=== PATIENT | female | born 1970 | race Two or more races ===

== ENCOUNTER 2025-02-15 18:03 | Inpatient (IN) | payer MEDICAID, OTHER ==
[~2025-02-15] VITALS: Ht 157.5 cm; Wt 85.7 kg
--- NOTE | 2025-02-15 19:07 | DVH ---
Exam: CT CT AB PEL WO CON-NO ORAL OR IV History: abd pain n/v/d Comparison Study: None TECHNIQUE: Multidetector CT of the abdomen was performed from lung bases to pubic symphysis. Imaging was performed without IV contrast. Axial, coronal and sagittal multiplanar reformats were obtained fr om the axial data set by the technologist. Radiation Dose Information: CT Dose: CTDI volume is 22.75 mGy. Dose-length product is 1252.25 mGy*cm FINDINGS: Evaluation of solid organs is limited due to lack of intravenous contrast use. Findings: Lung Bases: No acute or significant lung base finding. Normal heart size. No pleural or pericardial effusion. Liver: The liver is normal in size. No focal lesions. Gallbladder and Biliary Tree: Unremarkable Spleen: Unremarkable Pancreas: The pancreas is grossly normal in appearance. Adrenal Glands: Unremarkable Kidneys: Kidneys are grossly normal without calculi or hydronephrosis. Bladder: Grossly unremarkable for degree of distention. Bowel: The stomach is grossly normal in appearance. Small bowel and colon are normal in caliber and d istribution. The appendix is visualized and appears normal. Ascites: Absent Lymphadenopathy: No mesenteric, retroperitoneal or periportal lymphadenopathy. Abdominal Wall and Mesentery: Unremarkable. Vasculature: The visualized abdominal aorta is normal in size and caliber. Evaluation of abdominal a nd pelvic vessels is limited due to lack of intravenous contrast. Pelvic Organs: Unremarkable Musculoskeletal: No aggressive focal bony lesions, acute fractures or dislocation. Soft tissues: Unremarkable IMPRESSION: 1. Right: Mucosal thickening correlate clinically for possible colitis. 2. No abnormally dilated small bowel however small bowel contains fluid from the stomach to the cecum possibility of enteritis is raised. 3. Appendix is visualized and appears normal 4. No free air or free fluid. 5. No nephrolithiasis or hydronephrosis 6. Pancreas appears normal. Radiation optimization: All CT scans at this facility use at least one of these dose optimization amarilis hniques: automated exposure control mA and/or kV adjustment per patient size (includes targeted exam s where dose is matched to clinical indication) or iterative reconstruction.
[2025-02-15 19:12] LABS: Hematocrit 51.4 % (36.0-46.0); Hemoglobin 17.4 g/dL (12.2-16.2); Mean Corpuscular Hemoglobin 27.0 pg (28.0-32.0); Mean Corpuscular Volume 79.7 fL (80.0-100.0); Nucleated Red Blood Cells % 0.3 %
[2025-02-15 19:46] LABS: Alanine Aminotransferase 19 U/L (7-40); Albumin 4.7 g/dL (3.2-4.8); Alkaline Phosphatase 82 U/L (46-116); Anion Gap 17 (5-15); BUN/Creatinine Ratio 7.3 (10.0-20.0); Calcium 9.6 mg/dL (8.7-10.4); Chloride 98 mmol/L (98-107); Lipase 30 U/L (12-53); Potassium 4.2 mmol/L (3.5-5.1)
[2025-02-15 19:47] LABS: Bilirubin, Total 0.8 mg/dL (0.2-1.0)
[2025-02-15 19:50] LABS: Blood Urea Nitrogen 23 mg/dL (9-23); Carbon Dioxide 14 mmol/L (20-31); Glucose 129 mg/dL (74-106); Sodium 129 mmol/L (136-145); Total Protein 8.3 g/dL (5.7-8.2)
--- NOTE | 2025-02-15 20:07 | ED.PDOC ---
GI ASSESSMENT HPI Comments HPI: 54 y/o F, presents to the ED for CC of abdominal pain. Patient states, he has been experiencing epigastric abdominal pain with associated symptoms of nausea, vomiting, and diarrhea x2days. Patient reports, recent consumption of possible spoiled seafood x2days ago; endorses having same symptoms at home. Patie nt comments, having multiple episodes of emesis in the past x2days describes emesis to be yellow in appearance. Patient denies chills, sweats, weakness, or fatigue. No other symptoms or modifying factors present at this time. Initial Vitals BP:156/76 HR:124 RR:24 O2:96% Temp:98.0 Past Medical History: DENIES ANY Past Surgical History: DENIES ANY Social History: Denies ETOH, smoking, and drug use. Medications: DENIES ANY Allergies: JESSICAEna FELICIANO: Here with the for the same complaint epigastric pain status post eating fish and cactus. Has associated nonbilious bloody vomit and yellow diarrhea. Denies any other medical problems. HPI: Poor Historian. REVIEW OF SYSTEMS: CONSTITUTIONAL: Denies acute: fever, diaphoresis, chills, HEAD: Denies acute: headache, photophobia Eyes: Denies acute: Double vision, vision loss, eye pain, eye discharge. EARS: Denies acute: tinnitus, hearing loss, ear discharge, ear pain, THROAT: Denies acute: sore throat, swelling, difficulty swallowing , pain with swallowing, change in voice. NECK: Denies acute: neck pain, neck swelling, stiff neck. HEART: Denies acute : chest pain, palpitations, LUNGS: Denies acute: SOB, wheezing, cough, hemoptysis ABDOMEN: Denies acute: melena , hematemesis, hematochezia SKIN: Denies acute: rash, redness, lesions, itchiness. EXTREMITIES: Denies acute: calf pain, numbness, tingling, weakness, denies pain in extremity. Denies acute: Low back pain. Neuro: Denies acute: focal neurological deficit, motor or sensory focal neurological deficit, tremors, seizure like activity, confusion, dizziness, change in mental status, loss of bowel or bladder function, cauda equina like symptoms. : Denies acute: dysuria, hematuria, flank pain, increase in urinary frequency. PSYCH: Denies acute: hallucination, suicidal ideation, homicidal ideation. FEMALE: Denies acute: abnormal vaginal bleeding, foul odor, unusual discharge. PHYSICAL EXAM: General: -----moderate---acute distress, awake and alert. Head: normocephalic, atraumatic. Neck: supple, trachea is midline, no swelling. Throat: Normal phonation. Eyes:, no erythema, no purulent discharge, no proptosis, no icterus. Heart: regular rate, regular rhythm, no significant murmur appreciated. Lungs: no apparent respiratory distress, No wheezing, no rhonchi, no crackles. No stridors Clear to auscultation bilaterally. Abdomen: Epigastric tender to palpation, non distended, soft, no guarding, no rebound, + bowel sounds. Obese Neuro: Awake, Alert, oriented to name, self, situation, follows commands GCS=15. Speech is normal. Skin: no petechia, no purpura, no cyanosis, non-pale, not jaundice. Lower extremities: --no - Pitting edema no deformity, no focal swelling, no calf TTP. Makes eye contact. moves all four extremities. Face: no apparent facial droop. ED COURSE: DISCLAIMER: This medical document was created using an electronic medical record system with voice recognition software and computerized dictation system. Although this document has been carefully reviewed, there might still be some phonetic and typographical errors. Occasional wrong-word or "sound-alike" substitutions may have occurred due to the inherent limitations of voice recognition software. These areas are purely typographical due to imperfections of the software programs and do not reflect any compromise in the patient's medical care. Please read the chart carefully and recognize, using context, where these substitutions have occurred. Chief Complaint: Nausea/Vomiting Time Seen by MD: 20:00 Reviewed Notes: Nurses Notes, Medications, Allergies Allergies: Coded Allergies: NO KNOWN ALLERGIES (Unverified , 02/15/25) Information Source: Patient Mode of Arrival: Wheelchair Timing: Days Duration: Since onset Prehospital treatment: None Quality: None Vomitus: Watery Stool: Watery, Yellow Severity: Moderate Recent: Possible spoiled food Recent Hx of: None Pain Location: Epigastric Modifying Factors: Nothing Associated sign and symptoms: Nausea, Vomiting, Diarrhea, Abdominal Pain Was a procedure done? Was a procedure done?: No GI differential Dx Differential Diagnosis: Gastritis/PUD, Gastroenteritis, Electrolyte Imbalance, Food Poisoning, Bacterial, Viral, Other (DDX include but not limited to diverticulitis, colitis, gastroenteritis, acute abdomen, SBO, enteritis, constipation, volvulus, appendicitis, Gallbladder disease, choledocolithiasis, ascending cholangitis, pancreatitis, intraAbdominal mass/neoplasm, hepatitis, UTI, pylonephritis, kidney stone, aneurysm, dissection, Inflammatory bowel disease, gastroparesis, ischemic bowel.) X-Ray, Labs, Meds, VS Vital Signs Date Time Temp Pulse Resp B/P (MAP) Pulse Ox O2 Delivery O2 Flow Rate FiO2 02/15/25 18:06 98.2 124 24 110/48 96 98.2 Lab Test 02/15/25 19:01 02/15/25 18:18 Range/Units White Blood Count 8.1 4.4-10.8 10^3/uL Red Blood Count 6.45 H 4.0-5.20 10^6/uL Hemoglobin 17.4 H 12.2-16.2 g/dL Hematocrit 51.4 H 36.0-46.0 % Mean Corpuscular Volume 79.7 L 80.0-100.0 fL Mean Corpuscular Hemoglobin 27.0 L 28.0-32.0 pg Mean Corpuscular Hemoglobin Concent 33.8 32.0-36.0 g/dL Red Cell Distribution Width 14.1 11.8-14.3 % Platelet Count 153 140-450 10^3/uL Mean Platelet Volume 11.3 H 6.9-10.8 fL Neutrophils (%) (Auto) 84.2 H 37.0-80.0 % Lymphocytes (%) (Auto) 12.6 10.0-50.0 % Monocytes (%) (Auto) 3.1 0.0-12.0 % Eosinophils (%) (Auto) 0.0 0.0-7.0 % Basophils (%) (Auto) 0.1 0.0-2.0 % Neutrophils # (Auto) 6.8 1.6-8.6 10 ^3/uL Lymphocytes # (Auto) 1.0 0.4-5.4 10 ^3/uL Monocytes # (Auto) 0.2 0-1.3 10 ^3/uL Eosinophils # (Auto) 0 0-0.8 10 ^3/uL Basophils # (Auto) 0 0-0.2 10 ^3/uL Nucleated Red Blood Cells 0.3 % Sodium Level 129 L 136-145 mmol/L Potassium Level 4.2 3.5-5.1 mmol/L Chloride Level 98 98-107 mmol/L Carbon Dioxide Level 14 L 20-31 mmol/L Anion Gap 17 H 5-15 Blood Urea Nitrogen 23 9-23 mg/dL Creatinine 3.15 H 0.550-1.02 mg/dL Glomerular Filtration Rate Calc 17 >90 mL/min BUN/Creatinine Ratio 7.3 L 10.0-20.0 Serum Glucose 129 H 74-106 mg/dL Lactic Acid Level 2.0 0.4-2.0 mmol/L Calcium Level 9.6 8.7-10.4 mg/dL Magnesium Level 1.7 1.6-2.6 mg/dL Total Bilirubin 0.8 0.2-1.0 mg/dL Aspartate Amino Transferase (AST) 23 13-40 U/L Alanine Aminotransferase (ALT) 19 7-40 U/L Alkaline Phosphatase 82 46-116 U/L Total Protein 8.3 H 5.7-8.2 g/dL Albumin 4.7 3.2-4.8 g/dL Lipase 30 12-53 U/L Beta-Hydroxybutyric Acid 0.593 H < 0.4 mmol/L Urine Color Light-orange Yellow Urine Clarity Ex.turbid Clear Urine pH 5.0 5.0-9.0 Urine Specific [place] 1.023 1.001-1.035 Urine Protein 1+ H Negative Urine Ketones Negative Negative Urine Blood 1+ H Negative /uL Urine Nitrite Negative Negative Urine Bilirubin Negative Negative Urine Urobilinogen Normal Negative mg/dL Urine Leukocyte Esterase 3+ Negative /uL Urine RBC 10 0 - 4 /hpf Urine WBC Clumps Present None Seen /hpf Urine Microscopic WBC 70 H 0-5 /HPF Urine Squamous Epithelial Cells Many <5 /hpf Urine Bacteria Many H None Seen /hpf Urine Mucus Few None Seen Urine Glucose Trace Normal mg/dL Stool for White Cells Few Urine Opiates Screen Pending Urine Fentanyl Screen Pending Urine Barbiturates Screen Pending Urine Phencyclidine Screen Pending Urine Amphetamines Screen Pending Urine Benzodiazepines Screen Pending Urine Cocaine Screen Pending Urine Cannabinoids Screen Pending Current Medications Medications (Trade) Dose Ordered Sig/Angel Route Start Time Stop Time Status Last Admin Sodium Chloride 1,000 ml @ 1,000 mls/hr Q1H ONCE IV 02/15/25 20:15 02/15/25 21:14 DC 02/16/25 02:[address] [address] Ph: [phone] DIAGNOSTIC IMAGING Diagnostic Imaging Report : [id number] Signed PATIENT: CLIVE FELICIANO ACCT: [id number] UNIT: [id number] : 1970 LOC: ER ROOM / BED: / AGE / SEX: 54 / F ADM STATUS: REG ER SERVICE 31 ORDERING PHYSICIAN: JOSELYN MORAN DO PROCEDURE(s): ABPL - CT AB PEL WO CON-NO ORAL OR IV REASON: abd pain n/v/d ORDER NUMBER(s): [id number], ACCESSION NUMBER(s): [id number] Exam: CT CT AB PEL WO CON-NO ORAL OR IV History: abd pain n/v/d Comparison Study: None TECHNIQUE: Multidetector CT of the abdomen was performed from lung bases to pubic symphysis. Imaging was performed without IV contrast. Axial, coronal and sagittal multiplanar reformats were obtained from the axial data set by the technologist. Radiation Dose Information: CT Dose: CTDI volume is 22.75 mGy. Dose-length product is 1252.25 mGy*cm FINDINGS: Evaluation of solid organs is limited due to lack of intravenous contrast use. Findings: Lung Bases: No acute or significant lung base finding. Normal heart size. No pleural or pericardial effusion. Liver: The liver is normal in size. No focal lesions. Gallbladder and Biliary Tree: Unremarkable Spleen: Unremarkable Pancreas: The pancreas is grossly normal in appearance. Adrenal Glands: Unremarkable Kidneys: Kidneys are grossly normal without calculi or hydronephrosis. Bladder: Grossly unremarkable for degree of distention. Bowel: The stomach is grossly normal in appearance. Small bowel and colon are normal in caliber and distribution. The appendix is visualized and appears normal. Ascites: Absent Lymphadenopathy: No mesenteric, retroperitoneal or periportal lymphadenopathy. Abdominal Wall and Mesentery: Unremarkable. Vasculature: The visualized abdominal aorta is normal in size and caliber. Evaluation of abdominal and pelvic vessels is limited due to lack of intravenous contrast. Pelvic Organs: Unremarkable Musculoskeletal: No aggressive focal bony lesions, acute fractures or dislocation. Soft tissues: Unremarkable IMPRESSION: 1. Right: Mucosal thickening correlate clinically for possible colitis. 2. No abnormally dilated small bowel however small bowel contains fluid from the stomach to the cecum possibility of enteritis is raised. 3. Appendix is visualized and appears normal 4. No free air or free fluid. 5. No nephrolithiasis or hydronephrosis 6. Pancreas appears normal. Radiation optimization: All CT scans at this facility use at least one of these dose optimization techniques: automated exposure control mA and/or kV adjustment per patient size (includes targeted exams where dose is matched to clinical indication) or iterative reconstruction. ATED BY: SHEILA CHEATHAM Jr., DO DICTATED DATE/TIME: 02/15/251903 SIGNED BY: SHEILA CHEATHAM Jr., SIGNED DATE/TIME: 02/15/251903 CC: Time of 1ST Reevaluation: 20:30 Reevaluation 1ST: Unchanged Patient Education/Counseling: Diagnosis, Treatment Family Education/Counseling: Diagnosis, Treatment Comments MDM: patient presented with the above HPI.--GI symptoms----workup was initiated. patient was found with the above mentioned diagnosis. the following medications were ordered: please refer to order lists of meds and tests obtained by myself Dr. Moran. Patient ED course and VS have been stabilized. Patient has been reassessed in the ED and remained in a stable condition. Pertinent incidental findings were discussed with the patient and/or family. Patient/family voices understanding and is agreeable with plan. Patient has been observed in the ED adequate length of time to insure improvement/stability. Escalation of care considered: Consideration of escalation to observation or admission Findings and most likely with possible food poisoning. Patient was given fluids, fentanyl, Zofran, Cipro. Flagyl was given by the admitting team. Stool results came in later showing WBC. Patient was ADMITTED to the medicine team for further evaluation and treatment of their presentation. All the reports of any imaging studies that were ordered by myself were reviewed by myself. SEPSIS Sepsis Screen Date sepsis recognized/suspect: Feb 15, 2025 Time Sepsis recognized/suspect: 1805 Recent Procedure: No On Antibiotic Therapy: No Respiratory Rate >20: No Heart Rate >90: Yes Temp<36 C (96.8 F) or >38.3 C: No SBP <90 or MAP <65 mmHG: No New Acute Mental Status Change: No Is the patient on CPAP, BIPAP,: No Physician Orders Trucksmith (02/15/25 ) Ova & Parasite Exam (02/15/25 18:18) Stool Bacterial Culture (02/15/25 18:18) Ct Ab Pel Wo Con-No Oral Or Iv (02/15/25 18:32) Vital Signs Date Time Temp Pulse Resp B/P (MAP) Pulse Ox O2 Delivery O2 Flow Rate FiO2 02/15/25 18:06 98.2 124 24 110/48 96 98.2 Laboratory Tests Test 02/15/25 19:01 Lactic Acid Level 2.0 mmol/L (0.4-2.0) White Blood Count 8.1 10^3/uL (4.4-10.8) Medications Medications Dose Ordered Sig/Angel Route Start Time Stop Time Status Last Admin Dose Admin Sodium Chloride 1,000 ml @ 1,000 mls/hr Q1H ONCE IV 02/15/25 20:15 02/15/25 21:14 DC 02/16/25 02:24 Departure 1 Departure Time of Disposition: 20:09 Impression: Primary Impression: Epigastric pain Additional Impressions: Colitis Acute renal insufficiency Nausea vomiting and diarrhea Hyponatremia UTI (urinary tract infection) Infectious diarrhea Disposition: ADMITTED INPATIENT Admit to: [facility] Condition: Guarded Discharged With: Self Critical Care Note Critical Care Time?: Yes (1 hr-critical care time only) I personally scribed for JOSELYN MORAN DO ([email or web address]) on 02/15/25 at 20:07. Electronically submitted by Reena Hull ([email or web address]). I personally scribed for JOSELYN MORAN DO ([email or web address]) on 02/15/25 at 20:09. Electronically submitted by Reena Hull ([email or web address]). I personally scribed for JOSELYN MORAN DO ([email or web address]) on 02/15/25 at 20:18. Electronically submitted by Reena Hull ([email or web address]). I personally scribed for JOSELYN MORAN DO ([email or web address]) on 02/15/25 at 20:21. Electronically submitted by Reena Hull [email or web address]). JOSELYN MORAN DO Feb 15, 2025 20:07
[2025-02-15 21:16] LABS: Urine Protein, UAD 1+ (Negative); Urine WBC Clumps PRESENT /hpf (None Seen)
[2025-02-15] MEDS ORDERED: ONDANSETRON HCL 4 MG/2 ML VIAL IV PRN (23:15)
--- NOTE | 2025-02-15 23:19 | DVHHPRES ---
History of Present Illness Resident Creating Document: RICARDO EDWARDS RESIDENT History of Present Illness History of Present Illness (HPI): CLIVE Busch is a 54-year-old female with no known past medical history who presented with acute complaints of nausea, vomiting, abdominal pain, and back pain that began one day prior to evaluation. She describes the pain as dull, continuous, nonradiating, and rates it as 10 out of 10 in intensity. The pain worsens with eating and drinking and has no alleviating factors. Associated symptoms include chills, diarrhea, and dizziness. She reports that the vomiting is nonbloody. She denies having a fever. The patient notes that both she and her consumed cactus prior to the onset of symptoms, and both are currently experiencing similar illness. Past Medical History (PMH): Denies any past medical history Past Surgical History (PSH): Denies any past surgeries Family history (FH): No relevant family history EtOH: Denies alcohol use Smoking /Vaping: Denies smoking Recreational Drugs: Denies recreational drug use Residence: Lives with Home Medications: None Allergies: No known allergies PCP: Patient has no PCP Specialist relevant to admission: Nonrelevant Review of Systems Review of Systems CONSTITUTIONAL: Fever, night sweats, weight loss, Lymphadenopathy, ecchymoses, fatigue: Negative, complains of chills DERMATOLOGIC: Rash, New/growing/changing skin lesions: Negative HEENT: Vision change, eye pain, Rhinorrhea, sinus pain, epistaxis, dysphagia, odynophagia, globus sensation, Change in hearing, tinnitus, vertigo, otalgia, Dental problems, oral ulcers or lesions: : Negative ENDOCRINE: Weight change, heat or cold intolerance, tremor, insomnia, neck pain or swelling, Polyuria, polydipsia, polyphagia, Abnormal hair growth, change in nails: Negative CARDIOVASCULAR: Chest pain, palpitations, syncope, Edema, cyanosis, claudication, Orthopnea, paroxysmal nocturnal dyspnea: Negative PULMONARY: Shortness of breath, dyspnea with exertion, Cough, hemoptysis, wheezing, chest pain : Negative GI: Complains of nausea, vomiting, diarrhea and abdominal pain : Dysuria, frequency, urgency, Urinary incontinence, hematuria, foamy urine, nocturia, Change in libido, erectile dysfunction, Change in menses, dysmenorrhea, dyspaerunia, pelvic pain: : Negative MUSCULOSKELETAL: Joint swelling or pain, muscle pain, back pain: : Negative NEUROLOGIC: Headache, scotoma, Change in smell or taste, change in facial muscles, Muscle weakness, paresthesias, anesthesia, Ataxia, change in speech: Negative PSYCHIATRIC: Depression, anxiety, hallucinations, tatyana, suicidal/homicidal thoughts, Binging, purging: Negative Allergies: Coded Allergies: NO KNOWN ALLERGIES (Unverified , 02/15/25) Exam Vital Signs Vital Signs Date Time Temp Pulse Resp B/P (MAP) Pulse Ox O2 Delivery O2 Flow Rate FiO2 02/15/25 18:06 98.2 124 24 110/48 96 98.2 Exam General Appearance: Alert, Oriented X3, Cooperative, No acute distress HEENT: Atraumatic, PERRLA, EOMI, Mucous membrane moist/pink Respiratory: Clear to auscultation, Normal air movement Cardiovascular: Regular rate, Normal S1, Normal S2, No murmurs, no chest wall tenderness Abdominal: Denies in the umbilical region Extremities: No clubbing, No cyanosis, No edema, Normal pulses, No tenderness/swelling Skin: No rashes, No breakdown, No significant lesion Neuro: Normal gait, Normal speech, Strength at 5/5 X4 ext, Normal tone, Sensation intact, Cranial nerves 3-12 NL, Reflexes 2+ Psych/Mental Status: Mental status NL, Mood NL Labs/Xrays Labs Test 02/15/25 19:01 02/15/25 18:18 Range/Units White Blood Count 8.1 4.4-10.8 10^3/uL Red Blood Count 6.45 H 4.0-5.20 10^6/uL Hemoglobin 17.4 H 12.2-16.2 g/dL Hematocrit 51.4 H 36.0-46.0 % Mean Corpuscular Volume 79.7 L 80.0-100.0 fL Mean Corpuscular Hemoglobin 27.0 L 28.0-32.0 pg Mean Corpuscular Hemoglobin Concent 33.8 32.0-36.0 g/dL Red Cell Distribution Width 14.1 11.8-14.3 % Platelet Count 153 140-450 10^3/uL Mean Platelet Volume 11.3 H 6.9-10.8 fL Neutrophils (%) (Auto) 84.2 H 37.0-80.0 % Lymphocytes (%) (Auto) 12.6 10.0-50.0 % Monocytes (%) (Auto) 3.1 0.0-12.0 % Eosinophils (%) (Auto) 0.0 0.0-7.0 % Basophils (%) (Auto) 0.1 0.0-2.0 % Neutrophils # (Auto) 6.8 1.6-8.6 10 ^3/uL Lymphocytes # (Auto) 1.0 0.4-5.4 10 ^3/uL Monocytes # (Auto) 0.2 0-1.3 10 ^3/uL Eosinophils # (Auto) 0 0-0.8 10 ^3/uL Basophils # (Auto) 0 0-0.2 10 ^3/uL Nucleated Red Blood Cells 0.3 % Sodium Level 129 L 136-145 mmol/L Potassium Level 4.2 3.5-5.1 mmol/L Chloride Level 98 98-107 mmol/L Carbon Dioxide Level 14 L 20-31 mmol/L Anion Gap 17 H 5-15 Blood Urea Nitrogen 23 9-23 mg/dL Creatinine 3.15 H 0.550-1.02 mg/dL Glomerular Filtration Rate Calc 17 >90 mL/min BUN/Creatinine Ratio 7.3 L 10.0-20.0 Serum Glucose 129 H 74-106 mg/dL Lactic Acid Level 2.0 0.4-2.0 mmol/L Calcium Level 9.6 8.7-10.4 mg/dL Total Bilirubin 0.8 0.2-1.0 mg/dL Aspartate Amino Transferase (AST) 23 13-40 U/L Alanine Aminotransferase (ALT) 19 7-40 U/L Alkaline Phosphatase 82 46-116 U/L Total Protein 8.3 H 5.7-8.2 g/dL Albumin 4.7 3.2-4.8 g/dL Lipase 30 12-53 U/L Urine Color Light-orange Yellow Urine Clarity Ex.turbid Clear Urine pH 5.0 5.0-9.0 Urine Specific [place] 1.023 1.001-1.035 Urine Protein 1+ H Negative Urine Ketones Negative Negative Urine Blood 1+ H Negative /uL Urine Nitrite Negative Negative Urine Bilirubin Negative Negative Urine Urobilinogen Normal Negative mg/dL Urine Leukocyte Esterase 3+ Negative /uL Urine RBC 10 0 - 4 /hpf Urine WBC Clumps Present None Seen /hpf Urine Microscopic WBC 70 H 0-5 /HPF Urine Squamous Epithelial Cells Many <5 /hpf Urine Bacteria Many H None Seen /hpf Urine Mucus Few None Seen Urine Glucose Trace Normal mg/dL Stool for White Cells Few SEPSIS Sepsis Screen Date sepsis recognized/suspect: Feb 15, 2025 Time Sepsis recognized/suspect: 1805 Recent Procedure: No On Antibiotic Therapy: No Respiratory Rate >20: No Heart Rate >90: Yes Temp<36 C (96.8 F) or >38.3 C: No SBP <90 or MAP <65 mmHG: No New Acute Mental Status Change: No Is the patient on CPAP, BIPAP,: No Physician Orders Research Program Assistant (02/15/25 ) Ova & Parasite Exam (02/15/25 18:18) Stool Bacterial Culture (02/15/25 18:18) Ct Ab Pel Wo Con-No Oral Or Iv (02/15/25 18:32) Complete Blood Count (02/15/25 23:13) Basic Metabolic Panel (02/15/25 23:13) Magnesium (02/15/25 23:13) Beta-Hydroxybutyrate (02/15/25 23:13) Lactic Acid W/ Reflex Order (02/15/25 23:13) Admit (02/15/25 23:13) Levofloxacin Levaquin (02/15/25 23:15) Metronidazole Ivpb Flagyl (02/15/25 23:15) Stool Wbc (02/15/25 23:13) Drug Screen (02/15/25 23:13) Covid19 Antigen Eva (02/15/25 ) Ondansetron Hcl (Zofran) (02/15/25 23:15) Pantoprazole (Protonix) (02/15/25 23:15) Pantoprazole (Protonix) (02/16/25 10:00) Vital Signs Date Time Temp Pulse Resp B/P (MAP) Pulse Ox O2 Delivery O2 Flow Rate FiO2 02/15/25 18:06 98.2 124 24 110/48 96 98.2 Laboratory Tests Test 02/15/25 19:01 Lactic Acid Level 2.0 mmol/L (0.4-2.0) White Blood Count 8.1 10^3/uL (4.4-10.8) Assessment/Plan Assessment/Plan Assessment and plan # Acute gastroenteritis with colitis, likely bacterial # Starvation ketosis to recurrent vomiting # folic acidosis due to starvation ketosis because of recurrent vomiting - Follow lactic acid levels - Follow beta hydroxybutyrate - IV levofloxacin plus Flagyl - Stool culture, WBC - Pain medications # KATHERINE due to VMN recurrent vomiting - IV fluids - Follow creatinine levels nephrology consult Renal ultrasound Urine sodium, creatinine, protein to creatinine ratio strict input output # Complicated UTI - IV levofloxacin plus Flagyl - Urine culture # hyponatremia due to hypovolemia IV fluids PUD prophylaxis: protonix 40mg DVT prophylaxis: brisk movement. Barriers to discharge: Medical diagnosis and management in progress. Patient lives with family. Independent for ADL. PCP: No PCP. Advised to follow COUNTS INCLUDE 234 BEDS AT THE [facility] outpatient after sprigger Relevant To Admission: Nonrelevant Case discussed with Dr. Nelson. Code Status: Full Code. Complex patient care discussion needed. Spend total 33 minutes for bedside assessment, case discussion and management. Plan discussed with: Patient, Spouse My Orders Orders - RICARDO EDWARDS RESIDENT Procedure Category Date Status Time Complete Blood Count LAB 02/15/25 Transmitted 23:13 Basic Metabolic Panel LAB 02/15/25 Verified 23:13 Magnesium LAB 02/15/25 Verified 23:13 Beta-Hydroxybutyrate LAB 02/15/25 Verified 23:13 Lactic Acid W/ Reflex LAB 02/15/25 Verified Order 23:13 Admit ADMIT 02/15/25 Verified 23:13 Levofloxacin Levaquin PHA 02/15/25 Verified 23:15 Metronidazole Ivpb PHA 02/15/25 Verified Flagyl 23:15 Stool Wbc LAB 02/15/25 Verified 23:13 Drug Screen LAB 02/15/25 Verified 23:13 Covid19 Antigen Eva LAB 02/15/25 Verified Ondansetron Hcl PHA 02/15/25 Verified (Zofran) 23:15 Pantoprazole PHA 02/15/25 Verified (Protonix) 23:15 Pantoprazole PHA 02/16/25 Verified (Protonix) 10:00 Date of Service: Feb 15, 2025 Billing Provider: GALINA NELSON MD Common Visit Codes: [id number] INP/OBS CARE (HIGH) Secondary Visit Codes: [id number] CARE PLAN 30 MINUTES RICARDO EDWARDS RESIDENT Feb 15, 2025 23:19
[2025-02-16] VITALS (8 sets, daily range): BP systolic 91–111; BP diastolic 50–96; PULSE 76–92; RESP 17–24; TEMP 98.1–99.6; O2SAT 93–96
[2025-02-16] MEDS: SODIUM CHLORIDE 0.9% 1,000 ML IV ONE ×3 (02:24→11:30)
[2025-02-16] MEDS: PANTOPRAZOLE 40 MG/10 ML VIAL INJ IV ONE (03:30)
[2025-02-16] MEDS: ONDANSETRON HCL 4 MG/2 ML VIAL IV ONE (03:31)
[2025-02-16 03:48] LABS: COVID19 ANTIGEN SOFIA FIA NEGATIVE (NEGATIVE)
[2025-02-16] MEDS: KETOROLAC TROMETH 30 MG/ML 1ML VIAL IV ONE (05:11)
[2025-02-16] MEDS: SODIUM CHLORIDE 0.9% 1,000 ML IV SCH (05:12)
[2025-02-16 05:45] LABS: Hematocrit 47.6 % (36.0-46.0); Hemoglobin 15.7 g/dL (12.2-16.2); Mean Corpuscular Hemoglobin 27.0 pg (28.0-32.0); Mean Corpuscular Volume 81.8 fL (80.0-100.0); Nucleated Red Blood Cells % 0.0 %
[2025-02-16] MEDS: CIPROFLOXACIN 400MG/200ML 200 ML IV ONE (05:45)
[2025-02-16 05:54] LABS: Alanine Aminotransferase 20 U/L (7-40); Albumin 4.1 g/dL (3.2-4.8); Alkaline Phosphatase 74 U/L (46-116); Anion Gap 15 (5-15); BUN/Creatinine Ratio 11.3 (10.0-20.0); Bilirubin, Total 0.4 mg/dL (0.2-1.0); Chloride 101 mmol/L (98-107); Potassium 4.1 mmol/L (3.5-5.1); Total Protein 7.1 g/dL (5.7-8.2)
[2025-02-16 06:07] LABS: Blood Urea Nitrogen 42 mg/dL (9-23); Calcium 8.1 mg/dL (8.7-10.4); Carbon Dioxide 14 mmol/L (20-31); Glucose 120 mg/dL (74-106); Sodium 130 mmol/L (136-145)
[2025-02-16 06:27] LABS: Giant Platelets Few
--- NOTE | 2025-02-16 08:20 | DVH ---
INDICATION: steffi TECHNIQUE: Multiple real-time sonographic images of the kidneys and bladder were obtained. COMPARISON: None FINDINGS: The right kidney measures 10 cm in length, which is normal in size. There is normal echogen icity of the right kidney. No hydronephrosis. The left kidney measures 11 cm in length, which is normal in size. There is normal echogenicity of th e left kidney. No hydronephrosis. No large intraluminal masses are seen in the bladder. IMPRESSION: 1. Normal sonographic appearance of the kidneys. No hydronephrosis.
[2025-02-16] MEDS: PANTOPRAZOLE 40 MG/10 ML VIAL INJ IV SCH (09:19)
[2025-02-16 09:29] LABS: INR 1.08 (0.9-1.15); Partial Thromboplastin Time 31.0 SEC (24.5-34.5); Prothrombin Time 11.4 sec (9.3-11.8)
--- NOTE | 2025-02-16 10:59 | DVHINCON2 ---
Date of service: Feb 16, [address] Gil Reason for Consultation Acute kidney injury History of Present Illness Patient is a 54-year-old female who denies past medical history is admitted for abdominal pain associated with nausea vomiting and diarrhea. On admission patient found to have elevated BUN and creatinine nephrology is consulted for acute kidney injury Past Medical History Patient denies Past Surgical History Patient denies Allergies: Coded Allergies: NO KNOWN ALLERGIES (Unverified , 02/15/25) Home Meds No Active Prescriptions or Reported Meds Current Medications Current Medications Medications (Trade) Dose Ordered Sig/Angel Route PRN Reason Start Time Stop Time Status Last Admin Ondansetron HCl (Zofran) 4 mg Q4HPRN PRN IV NAUSEA / VOMITING 02/15/25 23:15 Pantoprazole Sodium (Protonix) 40 mg DAILY IV 02/16/25 10:00 02/16/25 09:19 Sodium Chloride 1,000 ml @ 100 mls/hr Q10H IV 02/16/25 04:15 02/16/25 14:39 Piperacillin Sod/ Tazobactam Sod 100 ml @ 25 mls/hr Q8HR IV 02/16/25 14:00 02/16/25 14:00 Sodium Bicarbonate 100 ml/Sodium Chloride 1,100 ml @ 120 mls/hr Q9H10M IV 02/16/25 10:15 02/16/25 13:00 Family History: Patient reports no known family medical history. Review of Systems All 12 item review of systems reviewed with the patient nonsignificant except what is mentioned in the history of present illness H&P Exam Vital Signs/I&O Vital Sign Date Time Temp Pulse Resp B/P (MAP) Pulse Ox O2 Delivery O2 Flow Rate FiO2 02/16/25 13:08 98.1 76 17 91/50 (64) 93 98.1 02/16/25 02:27 Room Air Intake and Output 02/15/25 02/16/25 19:00 07:00 Intake Total 1000 ml Balance 1000 ml Intake IV Total 1000 ml Physical Exam Patient lying comfortably in bed Lungs clear to auscultation bilaterally Cardiac exam regular rate and rhythm GI soft, increased bowel sounds normal Extremity no clubbing cyanosis or edema Neuro nonfocal Labs/Diagnostic Data Labs/Diagnostic Data Laboratory Tests Test 02/16/25 15:00 02/16/25 08:54 02/16/25 04:57 02/16/25 02:32 Range/Units Urine Color Light-yellow Yellow Urine Clarity Turbid H Clear Urine pH 5.5 5.0-9.0 Urine Specific [place] 1.011 1.001-1.035 Urine Protein 1+ H Negative Urine Ketones Negative Negative Urine Blood Trace H Negative /uL Urine Nitrite Negative Negative Urine Bilirubin Negative Negative Urine Urobilinogen Normal Negative mg/dL Urine Leukocyte Esterase Negative Negative /uL Urine RBC 1 0 - 4 /hpf Urine Microscopic WBC 10 H 0-5 /HPF Urine Squamous Epithelial Cells Few <5 /hpf Urine Bacteria Few H None Seen /hpf Urine Mucus Few None Seen Urine Creatinine 77.21 30.0-125.0 mg/dL Urine Protein/Creatinine Ratio 0.88 Urine Sodium 25 L 40-220 mmol/L Urine Glucose Normal Normal mg/dL Urine Total Protein 69.4 H 1-14 mg/dL Urine Opiates Screen Neg NEGATIVE Urine Fentanyl Screen Pos NEGATIVE Urine Barbiturates Screen Neg NEGATIVE Urine Phencyclidine Screen Neg NEGATIVE Urine Amphetamines Screen Neg NEGATIVE Urine Benzodiazepines Screen Neg NEGATIVE Urine Cocaine Screen Neg NEGATIVE Urine Cannabinoids Screen Neg NEGATIVE Prothrombin Time 11.4 9.3-11.8 sec Prothrombin Time INR 1.08 0.9-1.15 Activated Partial Thromboplast Time 31.0 24.5-34.5 SEC Vitamin B12 Level 511 211-911 pg/mL Vitamin D 25-Hydroxy 20.0 L 30.0-100 ng/mL White Blood Count 7.5 4.4-10.8 10^3/uL Red Blood Count 5.82 H 4.0-5.20 10^6/uL Hemoglobin 15.7 12.2-16.2 g/dL Hematocrit 47.6 H 36.0-46.0 % Mean Corpuscular Volume 81.8 80.0-100.0 fL Mean Corpuscular Hemoglobin 27.0 L 28.0-32.0 pg Mean Corpuscular Hemoglobin Concent 33.0 32.0-36.0 g/dL Red Cell Distribution Width 14.6 H 11.8-14.3 % Platelet Count 103 L 140-450 10^3/uL Mean Platelet Volume 10.9 H 6.9-10.8 fL Neutrophils (%) (Auto) 83.4 H 37.0-80.0 % Lymphocytes (%) (Auto) 12.7 10.0-50.0 % Monocytes (%) (Auto) 3.7 0.0-12.0 % Eosinophils (%) (Auto) 0.0 0.0-7.0 % Basophils (%) (Auto) 0.2 0.0-2.0 % Neutrophils # (Auto) 6.2 1.6-8.6 10 ^3/uL Lymphocytes # (Auto) 1.0 0.4-5.4 10 ^3/uL Monocytes # (Auto) 0.3 0-1.3 10 ^3/uL Eosinophils # (Auto) 0 0-0.8 10 ^3/uL Basophils # (Auto) 0 0-0.2 10 ^3/uL Nucleated Red Blood Cells 0.0 % Platelet Estimate Decreased Large Platelets Few Giant Platelets Few Sodium Level 130 L 136-145 mmol/L Potassium Level 4.1 3.5-5.1 mmol/L Chloride Level 101 98-107 mmol/L Carbon Dioxide Level 14 L 20-31 mmol/L Anion Gap 15 5-15 Blood Urea Nitrogen 42 #H 9-23 mg/dL Creatinine 3.71 H 0.550-1.02 mg/dL Glomerular Filtration Rate Calc 14 >90 mL/min BUN/Creatinine Ratio 11.3 10.0-20.0 Serum Glucose 120 H 74-106 mg/dL Hemoglobin A1c 5.6 <5.7 % A1C Calcium Level 8.1 L 8.7-10.4 mg/dL Total Bilirubin 0.4 0.2-1.0 mg/dL Aspartate Amino Transferase (AST) 24 13-40 U/L Alanine Aminotransferase (ALT) 20 7-40 U/L Alkaline Phosphatase 74 46-116 U/L Total Protein 7.1 5.7-8.2 g/dL Albumin 4.1 3.2-4.8 g/dL Thyroid Stimulating Hormone (TSH) 0.88 0.55-4.78 uIU/mL SARS-CoV-2 Antigen (Rapid) Negative NEGATIVE Test 02/15/25 19:01 02/15/25 18:18 Range/Units White Blood Count 8.1 4.4-10.8 10^3/uL Red Blood Count 6.45 H 4.0-5.20 10^6/uL Hemoglobin 17.4 H 12.2-16.2 g/dL Hematocrit 51.4 H 36.0-46.0 % Mean Corpuscular Volume 79.7 L 80.0-100.0 fL Mean Corpuscular Hemoglobin 27.0 L 28.0-32.0 pg Mean Corpuscular Hemoglobin Concent 33.8 32.0-36.0 g/dL Red Cell Distribution Width 14.1 11.8-14.3 % Platelet Count 153 140-450 10^3/uL Mean Platelet Volume 11.3 H 6.9-10.8 fL Neutrophils (%) (Auto) 84.2 H 37.0-80.0 % Lymphocytes (%) (Auto) 12.6 10.0-50.0 % Monocytes (%) (Auto) 3.1 0.0-12.0 % Eosinophils (%) (Auto) 0.0 0.0-7.0 % Basophils (%) (Auto) 0.1 0.0-2.0 % Neutrophils # (Auto) 6.8 1.6-8.6 10 ^3/uL Lymphocytes # (Auto) 1.0 0.4-5.4 10 ^3/uL Monocytes # (Auto) 0.2 0-1.3 10 ^3/uL Eosinophils # (Auto) 0 0-0.8 10 ^3/uL Basophils # (Auto) 0 0-0.2 10 ^3/uL Nucleated Red Blood Cells 0.3 % Sodium Level 129 L 136-145 mmol/L Potassium Level 4.2 3.5-5.1 mmol/L Chloride Level 98 98-107 mmol/L Carbon Dioxide Level 14 L 20-31 mmol/L Anion Gap 17 H 5-15 Blood Urea Nitrogen 23 9-23 mg/dL Creatinine 3.15 H 0.550-1.02 mg/dL Glomerular Filtration Rate Calc 17 >90 mL/min BUN/Creatinine Ratio 7.3 L 10.0-20.0 Serum Glucose 129 H 74-106 mg/dL Lactic Acid Level 2.0 0.4-2.0 mmol/L Calcium Level 9.6 8.7-10.4 mg/dL Magnesium Level 1.7 1.6-2.6 mg/dL Total Bilirubin 0.8 0.2-1.0 mg/dL Aspartate Amino Transferase (AST) 23 13-40 U/L Alanine Aminotransferase (ALT) 19 7-40 U/L Alkaline Phosphatase 82 46-116 U/L Total Protein 8.3 H 5.7-8.2 g/dL Albumin 4.7 3.2-4.8 g/dL Lipase 30 12-53 U/L Beta-Hydroxybutyric Acid 0.593 H < 0.4 mmol/L Urine Color Light-orange Yellow Urine Clarity Ex.turbid Clear Urine pH 5.0 5.0-9.0 Urine Specific [place] 1.023 1.001-1.035 Urine Protein 1+ H Negative Urine Ketones Negative Negative Urine Blood 1+ H Negative /uL Urine Nitrite Negative Negative Urine Bilirubin Negative Negative Urine Urobilinogen Normal Negative mg/dL Urine Leukocyte Esterase 3+ Negative /uL Urine RBC 10 0 - 4 /hpf Urine WBC Clumps Present None Seen /hpf Urine Microscopic WBC 70 H 0-5 /HPF Urine Squamous Epithelial Cells Many <5 /hpf Urine Bacteria Many H None Seen /hpf Urine Mucus Few None Seen Urine Glucose Trace Normal mg/dL Stool for White Cells Few Microbiology Date/Time Source Procedure Growth Status 02/15/25 22:00 Stool Clostridium difficile Toxin Assay - Final Complete Assessment Acute kidney injury secondary hemodynamic mediated Abdominal pain Gastroenteritis/colitis Dehydration Metabolic acidosis Hyponatremia due to dehydration Recommendations Closely monitor fluid and electrolytes Avoid nephrotoxic medications Strict I&Os Check urinalysis urine lytes and protein excretion Kidney ultrasound reported within normal limit IV fluids with bicarb KCL replacement GI consult We will continue to follow Patient seen and examined by myself in the ER. I discussed my plan of care with the patient and primary nurse at the bedside I would like to thank Dr. Gil for the consult, will follow up Plan discussed with: Patient MARGUERITE DALTON MD Feb 16, 2025 10:59
[2025-02-16] MEDS: SODIUM BICARB 50mEq/50ml Vial 100 ML in SOD CHL 0.45% 1,000 ML IV SCH (13:00)
[2025-02-16] MEDS: PIPERACILLIN-TAZOB 3.375GM 100 ML IV SCH (14:00)
[2025-02-16 15:46] LABS: Urine Protein, UAD 1+ (Negative)
[2025-02-16 15:59] LABS: Protein, Urine 69.4 mg/dL (1-14)
[2025-02-16 16:01] LABS: Opiate Scree,Urine Neg (NEGATIVE)
[2025-02-16 16:02] LABS: Amphetamine Screen, Urine Neg (NEGATIVE); Barbiturate Scree,Urine Neg (NEGATIVE); Benzodiazephine Screen, Urine Neg (NEGATIVE); Cannabinoid Screen, Urine Neg (NEGATIVE); Cocaine Screen, Urine Neg (NEGATIVE); Phencyclidine Screen, Urine Neg (NEGATIVE)
--- NOTE | 2025-02-16 20:06 | DVHPNRES ---
Progress Note Date Seen: Feb 16, 2025 Resident Creating Document: MOHINDER FOFANA RESIDENT Medical Necessity Reason Pt with a Central, PICC or Fol: No Subjective Review of Systems This is a 54-year-old female with no known past medical history who presented with acute complaints of nausea, vomiting, abdominal pain, and back pain that began 3 days prior admission. Abdominal pain which is located in the epigastric region, colicky, intermittent, nonradiating, and 10/10 intensity. The pain worsens with eating and drinking and has no alleviating factors. Patient also complained of diarrhea for 3 days average more than 20 bowel movement per day. Associated symptoms include chills, malaise, weakness and dizziness. She reports that the vomiting is non bloody. The patient and her consumed cactus prior to the onset of symptoms, and both are currently experiencing similar illness. Past Medical History (PMH): Denies any past medical history Past Surgical History (PSH): Denies any past surgeries Family history (FH): No relevant family history EtOH: Denies alcohol use Smoking /Vaping: Denies smoking Recreational Drugs: Denies recreational drug use Residence: Lives with Home Medications: None Allergies: No known allergies PCP: Not selected Patient seen and evaluated in bedside. Patient complained abdominal pain but feeling better in compared to admission. Decreased bowel movement episode. Encouraged patient to oral intake. Objective vital signs Vital Sign Date Time Temp Pulse Resp B/P (MAP) Pulse Ox O2 Delivery O2 Flow Rate FiO2 02/16/25 17:00 99.1 84 17 107/71 (83) 93 99.1 02/16/25 02:27 Room Air Total Intake and Output 02/15/25 02/15/25 02/16/25 15:00 23:00 07:00 Intake Total 1000 ml Balance 1000 ml medications Current Medications Medications Dose Ordered Sig/Angel Route Start Time Stop Time Status Last Admin Dose Admin Ondansetron HCl 4 mg Q4HPRN PRN IV 02/15/25 23:15 Pantoprazole Sodium 40 mg DAILY IV 02/16/25 10:00 02/16/25 09:19 40 MG Sodium Chloride 1,000 ml @ 100 mls/hr Q10H IV 02/16/25 04:15 02/16/25 14:39 100 MLS/HR Piperacillin Sod/ Tazobactam Sod 100 ml @ 25 mls/hr Q8HR IV 02/16/25 14:00 02/16/25 14:00 25 MLS/HR Sodium Bicarbonate 100 ml/Sodium Chloride 1,100 ml @ 120 mls/hr Q9H10M IV 02/16/25 10:15 02/16/25 13:00 120 MLS/HR Examination General Appearance: Alert, Oriented X3, Cooperative, No acute distress HEENT: Atraumatic, PERRLA, EOMI, Mucous membrane moist/pink Respiratory: Clear to auscultation, Normal air movement Cardiovascular: Regular rate, Normal S1, Normal S2, No murmurs, no chest wall tenderness Abdominal: Tender epigastric and bilateral flank on deep palpation, bowel sounds present Extremities: No clubbing, No cyanosis, No edema, Normal pulses, No tenderness/swelling Skin: No rashes, No breakdown, No significant lesion Neuro: Normal gait, Normal speech, Strength at 5/5 X4 ext, Normal tone, Sensation intact, Cranial nerves 3-12 NL, Reflexes 2+ Psych/Mental Status: Mental status NL, Mood NL laboratory and microbiology Laboratory Tests 02/16/25 04:57 Test 02/16/25 04:57 Range/Units Serum Glucose 120 H 74-106 mg/dL Microbiology Date/Time Source Procedure Growth Status 02/15/25 22:00 Stool Clostridium difficile Toxin Assay - Final Complete Problem List/Assessment/Plan Problem List/Assessment/Plan # Acute gastroenteritis with colitis likely bacterial/vital # Starvation ketosis to recurrent vomiting # Acute gastritis -CT abdomen and pelvis without contrast:small bowel contains fluid from the stomach to the cecum possibility of enteritis is raised. colonic mucosal thickening likely colitis. -Ultrasound kidney : No hydronephrosis - lactic acid 2.0 - beta hydroxybutyrate in case - Zosyn IV antibiotic - Stool culture, WBC -monitor vital - Pain medications # KATHERINE due to vasomotor nephropathy IV fluids FeNA 0.9% strict input output Avoid nephrotoxic BMP # Complicated UTI UA shows turbid, leukocyte esterase 3+, RBC 10, WBC 70, bacteria many -Zosyn IV antibiotic Ultrasound kidney : No hydronephrosis - Urine culture # Hyponatremia due to hypovolemia IV fluids BMP #Vitamin-D deficiency Vitamin-D level 20.0 Vitamin-D 76426 units p.o. Q weekly #Hypocalcemia PUD prophylaxis: protonix DVT prophylaxis: Patient ambulatory Goals of care discussions. More than 21 minute spent with patient. Full code status. Case discussed with Dr. Hughes Plan discussed with: Patient, Other (Nurse) Date of Service: Feb 16, 2025 Billing Provider: SASCHA HUGHES MD Common Visit Codes: [id number] INP/OBS CARE(HIGH) MOHINDER FOFANA RESIDENT Feb 16, 2025 20:06 ROYAL BARRERA RESIDENT Feb 21, 2025 11:38 SASCHA HUGHES MD Feb 22, 2025 19:31
[2025-02-16] MEDS ORDERED: KETOROLAC TROMETH 30 MG/ML 1ML VIAL IV ONE (21:15)
[2025-02-16] MEDS: MORPHINE SULFATE INJ 2 MG/ml SYRG IV ONE (21:15)
[2025-02-17] VITALS (8 sets, daily range): BP systolic 92–123; BP diastolic 54–76; PULSE 58–76; RESP 15–18; TEMP 98–98.6; O2SAT 93–97
[2025-02-17 07:08] LABS: Hematocrit 43.3 % (36.0-46.0); Hemoglobin 14.5 g/dL (12.2-16.2); Mean Corpuscular Hemoglobin 27.3 pg (28.0-32.0); Mean Corpuscular Volume 81.5 fL (80.0-100.0); Nucleated Red Blood Cells % 0.4 %
[2025-02-17 07:19] LABS: Anion Gap 10 (5-15); Chloride 106 mmol/L (98-107)
[2025-02-17 07:20] LABS: Sodium 135 mmol/L (136-145)
[2025-02-17 07:21] LABS: Calcium 8.4 mg/dL (8.7-10.4); Carbon Dioxide 19 mmol/L (20-31); Potassium 3.5 mmol/L (3.5-5.1)
[2025-02-17 07:25] LABS: BUN/Creatinine Ratio 11.4 (10.0-20.0); Blood Urea Nitrogen 19 mg/dL (9-23); Glucose 95 mg/dL (74-106)
[2025-02-17 07:26] LABS: Magnesium 2.2 mg/dL (1.6-2.6)
[2025-02-17] MEDS: AMPICILLIN INJ 500 MG in SODIUM CHL 0.9% 50 ML IV ONE (14:06)
[2025-02-17] MEDS: AZITHROMYCIN 500MG/ 250ML 250 ML IV ONE (15:44)
[2025-02-17] MEDS: MORPHINE SULFATE INJ 2 MG/ml SYRG IV PRN (15:47)
[2025-02-17] MEDS: AMPICILLIN INJ 500 MG in SODIUM CHL 0.9% 50 ML IV SCH (18:05)
--- NOTE | 2025-02-17 18:24 | DVHPN2 ---
Progress Note Date Seen: Feb 17, 2025 Medical Necessity Reason Pt with a Central, PICC or Fol: No Subjective Patient reports: No new complaints Review of Systems: HEENT:Normal, CVS:Normal, RESPIRATORY:Normal, GI:Normal, :Normal, MSK:Normal, NEURO:Normal Objective vital signs Vital Sign Date Time Temp Pulse Resp B/P (MAP) Pulse Ox O2 Delivery O2 Flow Rate FiO2 02/17/25 16:55 98.6 66 15 104/72 (83) 93 98.6 02/17/25 08:00 Room Air* 0 21 Total Intake and Output 02/16/25 02/16/25 02/17/25 15:00 23:00 07:00 Intake Total 0 ml 100 ml Balance 0 ml 100 ml medications Current Medications Medications Dose Ordered Sig/Angel Route Start Time Stop Time Status Last Admin Dose Admin Ondansetron HCl 4 mg Q4HPRN PRN IV 02/15/25 23:15 Pantoprazole Sodium 40 mg DAILY IV 02/16/25 10:00 02/17/25 10:48 40 MG Sodium Chloride 1,000 ml @ 100 mls/hr Q10H IV 02/16/25 04:15 02/17/25 10:49 100 MLS/HR Sodium Bicarbonate 100 ml/Sodium Chloride 1,100 ml @ 120 mls/hr Q9H10M IV 02/16/25 10:15 02/17/25 04:31 120 MLS/HR Azithromycin 250 ml @ 125 mls/hr DAILY IV 02/18/25 10:00 Ampicillin Sodium 500 mg/Sodium Chloride 50 ml @ 100 mls/hr Q6HR IV 02/17/25 18:00 Morphine Sulfate 1 mg Q6HP PRN IV 02/17/25 15:00 02/17/25 15:47 1 MG laboratory and microbiology Laboratory Tests 02/17/25 06:13 Test 02/17/25 06:13 Range/Units Serum Glucose 95 74-106 mg/dL Microbiology Date/Time Source Procedure Growth Status 02/16/25 15:54 Nose MRSA Screen - Final Complete 02/16/25 15:00 Voided Urine Urine Culture - Preliminary Resulted 02/16/25 08:54 Blood Blood Culture - Preliminary NO GROWTH AFTER 24 HOURS OF INCUBATION. Resulted 02/15/25 22:00 Stool Clostridium difficile Toxin Assay - Final Complete Problem List/Assessment/Plan Problem List/Assessment/Plan Acute kidney injury secondary hemodynamic mediated Abdominal pain Gastroenteritis/colitis Dehydration Metabolic acidosis Hyponatremia due to dehydration Recommendations IV fluids KCL replacement GI consult We will continue to follow Plan discussed with: Patient Dietary Evaluation Review Comments: Nutrition Recommendation: 1) Advance diet as medically feasible 2) Refer Investments Manager for weight management Expected Outcomes/Goals: To meet >75% estimated needs Fu 2-3 days SANTIAGO RAUSCH MD Feb 17, 2025 18:24
[2025-02-17] MEDS: SODIUM BICARB 50mEq/50ml Vial 75 ML in SOD CHL 0.45% 1,000 ML IV SCH (20:00)
--- NOTE | 2025-02-17 20:07 | DVHPNRES ---
Progress Note Date Seen: Feb 17, 2025 Resident Creating Document: MOHINDER FOFANA RESIDENT Medical Necessity Reason Pt with a Central, PICC or Fol: No Subjective Review of Systems This is a 54-year-old female with no known past medical history who presented with acute complaints of nausea, vomiting, abdominal pain, and back pain that began 3 days prior admission. Abdominal pain which is located in the epigastric region, colicky, intermittent, nonradiating, and 10/10 intensity. The pain worsens with eating and drinking and has no alleviating factors. Patient also complained of diarrhea for 3 days average more than 20 bowel movement per day. Associated symptoms include chills, malaise, weakness and dizziness. She reports that the vomiting is non bloody. The patient and her consumed cactus prior to the onset of symptoms, and both are currently experiencing similar illness. Past Medical History (PMH): Denies any past medical history Past Surgical History (PSH): Denies any past surgeries Family history (FH): No relevant family history EtOH: Denies alcohol use Smoking /Vaping: Denies smoking Recreational Drugs: Denies recreational drug use Residence: Lives with Home Medications: None Allergies: No known allergies PCP: Not selected Seen and evaluated today in bedside. Patient still have bowel movement more than 6 /7 times last 24 hours with loose stool Denies any fever, chest pain, dysuria. Objective vital signs Vital Sign Date Time Temp Pulse Resp B/P (MAP) Pulse Ox O2 Delivery O2 Flow Rate FiO2 02/17/25 16:55 98.6 66 15 104/72 (83) 93 98.6 02/17/25 08:00 Room Air* 0 21 Total Intake and Output 02/16/25 02/16/25 02/17/25 15:00 23:00 07:00 Intake Total 0 ml 100 ml Balance 0 ml 100 ml medications Current Medications Medications Dose Ordered Sig/Angel Route Start Time Stop Time Status Last Admin Dose Admin Ondansetron HCl 4 mg Q4HPRN PRN IV 02/15/25 23:15 Pantoprazole Sodium 40 mg DAILY IV 02/16/25 10:00 02/17/25 10:48 40 MG Azithromycin 250 ml @ 125 mls/hr DAILY IV 02/18/25 10:00 Ampicillin Sodium 500 mg/Sodium Chloride 50 ml @ 100 mls/hr Q6HR IV 02/17/25 18:00 02/17/25 18:05 100 MLS/HR Morphine Sulfate 1 mg Q6HP PRN IV 02/17/25 15:00 02/17/25 15:47 1 MG Sodium Bicarbonate 75 ml/ Sodium Chloride 1,075 ml @ 75 mls/hr [id number] IV 02/17/25 18:30 Ergocalciferol 50,000 unit Q7D PO 02/18/25 20:00 UNV Examination General Appearance: Alert, Oriented X3, Cooperative, No acute distress HEENT: Atraumatic, PERRLA, EOMI, Mucous membrane moist/pink Respiratory: Clear to auscultation, Normal air movement Cardiovascular: Regular rate, Normal S1, Normal S2, No murmurs, no chest wall tenderness Abdominal: Tender on deep palpation Extremities: No clubbing, No cyanosis, No edema, Normal pulses, No tenderness/swelling Skin: No rashes, No breakdown, No significant lesion Neuro: Normal gait, Normal speech, Strength at 5/5 X4 ext, Normal tone, Sensation intact, Cranial nerves 3-12 NL, Reflexes 2+ Psych/Mental Status: Mental status NL, Mood NL laboratory and microbiology Laboratory Tests 02/17/25 06:13 Test 02/17/25 06:13 Range/Units Serum Glucose 95 74-106 mg/dL Microbiology Date/Time Source Procedure Growth Status 02/16/25 15:54 Nose MRSA Screen - Final Complete 02/16/25 15:00 Voided Urine Urine Culture - Preliminary Resulted 02/16/25 08:54 Blood Blood Culture - Preliminary NO GROWTH AFTER 24 HOURS OF INCUBATION. Resulted 02/15/25 22:00 Stool Clostridium difficile Toxin Assay - Final Complete Problem List/Assessment/Plan Problem List/Assessment/Plan # Acute gastroenteritis with colitis likely bacterial/vital # Starvation ketosis to recurrent vomiting # Acute gastritis -CT abdomen and pelvis without contrast:small bowel contains fluid from the stomach to the cecum possibility of enteritis is raised. colonic mucosal thickening likely colitis. -Ultrasound kidney : No hydronephrosis - lactic acid 2.0 -beta hydroxybutyric acid 0.593 -UDS positive for fentanyl possibly, administered in-hospital - stool positive for Campylobacter and Salmonella -Shigella and Clostridium difficile is negative -Discontinue Zosyn and start ampicillin and azithromycin -monitor vital - Pain medications # KATHERINE due to vasomotor nephropathy Metabolic acidosis IV fluids FeNA 0.9% strict input output Avoid nephrotoxic Creatinine creatinine trending down to 3.71 to 1.66 See consult appreciated BMP # Complicated UTI UA shows turbid, leukocyte esterase 3+, RBC 10, WBC 70, bacteria many - IV antibiotic -Ultrasound kidney : No hydronephrosis - Urine culture # Hyponatremia due to hypovolemia IV fluids BMP #Vitamin-D deficiency Vitamin-D level 20.0 Vitamin-D 12906 units p.o. Q weekly #Hypocalcemia PUD prophylaxis: protonix DVT prophylaxis: Patient ambulatory Goals of care discussions. More than 19 minute spent with patient. Full code status. Case discussed with Dr. Hughes Plan discussed with: Patient, Other (Nurse) My Orders My Orders Orders - MOHINDER FOFANA RESIDENT Procedure Category Date Status Time Clear Liq Diet DIET 02/17/25 Transmitted Breakfast Azithromycin 500mg/ PHA 02/18/25 In Process 250ml (Zithromax 50 10:00 Morphine Sulfate PHA 02/17/25 In Process Injection 15:00 Ergocalciferol PHA 02/18/25 Logged (Vitamin D 50,000 20:00 Dietary Evaluation Review Comments: Nutrition Recommendation: 1) Advance diet as medically feasible 2) Refer Supervisor Publications for weight management Expected Outcomes/Goals: To meet >75% estimated needs Fu 2-3 days Date of Service: Feb 17, 2025 Billing Provider: SASCHA HUGHES MD Common Visit Codes: [id number] INP/OBS CARE(HIGH) MOHINDER FOFANA RESIDENT Feb 17, 2025 20:07 ROYAL BARRERA Feb 21, 2025 11:39 SASCHA HUGHES MD Feb 22, 2025 20:27
[2025-02-18] VITALS (8 sets, daily range): BP systolic 99–115; BP diastolic 57–80; PULSE 59–73; RESP 16–18; TEMP 97.9–98.7; O2SAT 94–96
[2025-02-18 07:04] LABS: Chloride 103 mmol/L (98-107); Sodium 137 mmol/L (136-145)
[2025-02-18 07:05] LABS: Anion Gap 9 (5-15); Carbon Dioxide 25 mmol/L (20-31)
[2025-02-18 07:10] LABS: BUN/Creatinine Ratio 9.8 (10.0-20.0); Glucose 98 mg/dL (74-106)
[2025-02-18 07:16] LABS: Blood Urea Nitrogen 8 mg/dL (9-23); Calcium 8.4 mg/dL (8.7-10.4); Potassium 3.3 mmol/L (3.5-5.1)
[2025-02-18] MEDS: AZITHROMYCIN 500MG/ 250ML 250 ML IV SCH (09:14)
[2025-02-18 09:36] LABS: Nucleated Red Blood Cells % 0.1 %
[2025-02-18 09:38] LABS: Hematocrit 40.1 % (36.0-46.0); Hemoglobin 13.5 g/dL (12.2-16.2); Mean Corpuscular Hemoglobin 27.0 pg (28.0-32.0); Mean Corpuscular Volume 80.4 fL (80.0-100.0)
[2025-02-18] MEDS: POTASSIUM CHLORIDE 20 MEQ, LIDOCAINE 1% (LOCAL ANESTH.) 2 ML in SODIUM CHL 0.9% 100 ML IV ONE (11:29)
--- NOTE | 2025-02-18 15:56 | DVHPN2 ---
Progress Note Date Seen: Feb 18, 2025 Medical Necessity Reason Pt with a Central, PICC or Fol: No Subjective Patient reports: No new complaints Review of Systems: Deferred Objective vital signs Vital Sign Date Time Temp Pulse Resp B/P (MAP) Pulse Ox O2 Delivery O2 Flow Rate FiO2 02/18/25 14:19 98.3 64 18 101/71 (81) 96 98.3 02/18/25 08:12 Room Air* 0 21 Total Intake and Output 02/17/25 02/17/25 02/18/25 15:00 23:00 07:00 Intake Total 1250 ml 1640 ml 700 ml Balance 1250 ml 1640 ml 700 ml medications Current Medications Medications Dose Ordered Sig/Angel Route Start Time Stop Time Status Last Admin Dose Admin Ondansetron HCl 4 mg Q4HPRN PRN IV 02/15/25 23:15 Pantoprazole Sodium 40 mg DAILY IV 02/16/25 10:00 02/18/25 09:12 40 MG Azithromycin 250 ml @ 125 mls/hr DAILY IV 02/18/25 10:00 02/18/25 09:14 125 MLS/HR Ampicillin Sodium 500 mg/Sodium Chloride 50 ml @ 100 mls/hr Q6HR IV 02/17/25 18:00 02/18/25 12:19 100 MLS/HR Morphine Sulfate 1 mg Q6HP PRN IV 02/17/25 15:00 02/17/25 15:47 1 MG Sodium Bicarbonate 75 ml/ Sodium Chloride 1,075 ml @ 75 mls/hr [id number] IV 02/17/25 18:30 02/18/25 04:22 75 MLS/HR Ergocalciferol 50,000 unit Q7D PO 02/18/25 21:00 laboratory and microbiology Laboratory Tests 02/18/25 09:19 02/18/25 06:23 Test 02/18/25 06:23 Range/Units Serum Glucose 98 74-106 mg/dL Microbiology Date/Time Source Procedure Growth Status 02/16/25 15:54 Nose MRSA Screen - Final Complete 02/16/25 15:00 Voided Urine Urine Culture - Preliminary Resulted 02/16/25 08:54 Blood Blood Culture - Preliminary NO GROWTH AFTER 48 HOURS OF INCUBATION. Resulted 02/15/25 22:00 Stool Clostridium difficile Toxin Assay - Final Complete Problem List/Assessment/Plan Problem List/Assessment/Plan Acute kidney injury secondary hemodynamic mediated Abdominal pain Gastroenteritis/colitis Dehydration Metabolic acidosis Hyponatremia due to dehydration Recommendations improved renal function will sign off the case Plan discussed with: Patient My Orders My Orders Orders - SANTIAGO RAUSCH MD Procedure Category Date Status Time Sod Chl 0.45% PHA 02/17/25 In Process (Sodi... W/Sodium 18:30 Dietary Evaluation Review Comments: Nutrition Recommendation: 1) Advance diet as medically feasible 2) Refer Cooker Cleaner for weight management Expected Outcomes/Goals: To meet >75% estimated needs Fu 2-3 days SANTIAGO RAUSCH MD Feb 18, 2025 15:56
--- NOTE | 2025-02-18 16:59 | DVHPNRES ---
Progress Note Date Seen: Feb 18, 2025 Resident Creating Document: ELVIA MCKEE RESIDENT Medical Necessity Reason Pt with a Central, PICC or Fol: No Subjective Review of Systems This is a 54-year-old female with no known past medical history who presented with acute complaints of nausea, vomiting, abdominal pain, and back pain that began 3 days prior admission. Abdominal pain which is located in the epigastric region, colicky, intermittent, nonradiating, and 10/10 intensity. The pain worsens with eating and drinking and has no alleviating factors. Patient also complained of diarrhea for 3 days average more than 20 bowel movement per day. Associated symptoms include chills, malaise, weakness and dizziness. She reports that the vomiting is non bloody. The patient and her consumed cactus prior to the onset of symptoms, and both are currently experiencing similar illness. Past Medical History (PMH): Denies any past medical history Past Surgical History (PSH): Denies any past surgeries Family history (FH): No relevant family history EtOH: Denies alcohol use Smoking /Vaping: Denies smoking Recreational Drugs: Denies recreational drug use Residence: Lives with Home Medications: None Allergies: No known allergies PCP: Not selected Patient was seen and examined at bedside. She reports overall improvement in her symptoms of nausea vomiting, however she still experiences two to three episodes of loose stool since yesterday. She denies any chest pain, shortness of breath, fever or any other complaints today. Objective vital signs Vital Sign Date Time Temp Pulse Resp B/P (MAP) Pulse Ox O2 Delivery O2 Flow Rate FiO2 02/18/25 16:50 98.7 68 17 104/57 (73) 96 98.7 02/18/25 08:12 Room Air* 0 21 Total Intake and Output 02/17/25 02/17/25 02/18/25 15:00 23:00 07:00 Intake Total 1250 ml 1640 ml 700 ml Balance 1250 ml 1640 ml 700 ml medications Current Medications Medications Dose Ordered Sig/Angel Route Start Time Stop Time Status Last Admin Dose Admin Ondansetron HCl 4 mg Q4HPRN PRN IV 02/15/25 23:15 Pantoprazole Sodium 40 mg DAILY IV 02/16/25 10:00 02/18/25 09:12 40 MG Azithromycin 250 ml @ 125 mls/hr DAILY IV 02/18/25 10:00 02/18/25 09:14 125 MLS/HR Ampicillin Sodium 500 mg/Sodium Chloride 50 ml @ 100 mls/hr Q6HR IV 02/17/25 18:00 02/18/25 12:19 100 MLS/HR Morphine Sulfate 1 mg Q6HP PRN IV 02/17/25 15:00 02/17/25 15:47 1 MG Ergocalciferol 50,000 unit Q7D PO 02/18/25 21:00 Examination Examination General Appearance: Alert, Oriented X3, Cooperative, No acute distress HEENT: Atraumatic, PERRLA, EOMI, Mucous membrane moist/pink Respiratory: Clear to auscultation, Normal air movement Cardiovascular: Regular rate, Normal S1, Normal S2, No murmurs, no chest wall tenderness Abdominal: Tender on deep palpation Extremities: No clubbing, No cyanosis, No edema, Normal pulses, No tenderness/swelling Skin: No rashes, No breakdown, No significant lesion Neuro: Normal gait, Normal speech, Strength at 5/5 X4 ext, Normal tone, Sensation intact, Cranial nerves 3-12 NL, Reflexes 2+ Psych/Mental Status: Mental status NL, Mood NL l laboratory and microbiology Laboratory Tests 02/18/25 09:19 02/18/25 06:23 Test 02/18/25 06:23 Range/Units Serum Glucose 98 74-106 mg/dL Microbiology Date/Time Source Procedure Growth Status 02/16/25 15:54 Nose MRSA Screen - Final Complete 02/16/25 15:00 Voided Urine Urine Culture - Preliminary Resulted 02/16/25 08:54 Blood Blood Culture - Preliminary NO GROWTH AFTER 48 HOURS OF INCUBATION. Resulted 02/15/25 22:00 Stool Clostridium difficile Toxin Assay - Final Complete Labs and/or images reviewed: Labs reviewed by me, Image(s) reviewed by me Problem List/Assessment/Plan Problem List/Assessment/Plan # Acute gastroenteritis with colitis likely bacterial/vital # Starvation ketosis to recurrent vomiting # Acute gastritis -CT abdomen and pelvis without contrast:small bowel contains fluid from the stomach to the cecum possibility of enteritis is raised. colonic mucosal thickening likely colitis. -Ultrasound kidney : No hydronephrosis - lactic acid 2.0 -beta hydroxybutyric acid 0.593 -UDS positive for fentanyl possibly, administered in-hospital - stool positive for Campylobacter and Salmonella -Shigella and Clostridium difficile is negative -Discontinue Zosyn and start ampicillin and azithromycin -monitor vital - Pain medications # KATHERINE due to vasomotor nephropathy Metabolic acidosis IV fluids FeNA 0.9% strict input output Avoid nephrotoxic Creatinine creatinine trending down to 3.71 to 1.66 See consult appreciated BMP # Complicated UTI UA shows turbid, leukocyte esterase 3+, RBC 10, WBC 70, bacteria many - IV antibiotic -Ultrasound kidney : No hydronephrosis - Urine culture # Hyponatremia due to hypovolemia IV fluids BMP #Vitamin-D deficiency Vitamin-D level 20.0 Vitamin-D 60771 units p.o. Q weekly #Hypocalcemia PUD prophylaxis: protonix DVT prophylaxis: Patient ambulatory Goals of care discussions. More than 19 minute spent with patient. Full code status. Case discussed with Dr. Ortega Plan discussed with: Patient, Other Dietary Evaluation Review Comments: Nutrition Recommendation: 1) Advance diet as medically feasible 2) Refer Clay Pigeon Loader for weight management Expected Outcomes/Goals: To meet >75% estimated needs Fu 2-3 days Date of Service: Feb 18, 2025 Billing Provider: CHRIS ORTEGA MD Common Visit Codes: [id number] INP/OBS CARE(HIGH) ELVIA MCKEE RESIDENT Feb 18, 2025 16:59 CHRIS ORTEGA MD Feb 19, 2025 11:21
[2025-02-18] MEDS: ERGOCALCIFEROL 50,000 UNIT(1.25MG) CAP PO SCH (21:09)
[2025-02-19] VITALS (8 sets, daily range): BP systolic 102–120; BP diastolic 50–80; PULSE 62–82; RESP 16–18; TEMP 98–98.4; O2SAT 95–97
--- NOTE | 2025-02-19 15:05 | DVHPNRES ---
Progress Note Date Seen: Feb 19, 2025 Resident Creating Document: MOHINDER FOFANA RESIDENT Medical Necessity Reason Pt with a Central, PICC or Fol: No Subjective Review of Systems This is a 54-year-old female with no known past medical history who presented with acute complaints of nausea, vomiting, abdominal pain, and back pain that began 3 days prior admission. Abdominal pain which is located in the epigastric region, colicky, intermittent, nonradiating, and 10/10 intensity. The pain worsens with eating and drinking and has no alleviating factors. Patient also complained of diarrhea for 3 days average more than 20 bowel movement per day. Associated symptoms include chills, malaise, weakness and dizziness. She reports that the vomiting is non bloody. The patient and her consumed cactus prior to the onset of symptoms, and both are currently experiencing similar illness. Past Medical History (PMH): Denies any past medical history Past Surgical History (PSH): Denies any past surgeries Family history (FH): No relevant family history EtOH: Denies alcohol use Smoking /Vaping: Denies smoking Recreational Drugs: Denies recreational drug use Residence: Lives with Home Medications: None Allergies: No known allergies PCP: Not selected Patient seen and evaluated in bedside today. Patient symptoms significantly improving. Patient can tolerate clear liquid diet, we will advanced gradually, no acute event overnight. Stool positive for Salmonella. Objective vital signs Vital Sign Date Time Temp Pulse Resp B/P (MAP) Pulse Ox O2 Delivery O2 Flow Rate FiO2 02/19/25 13:40 98.1 82 16 105/65 (78) 96 98.1 02/19/25 08:18 Room Air* 0 21 Total Intake and Output 02/18/25 02/18/25 02/19/25 14:59 22:59 06:59 Intake Total 787 ml 775 ml 400 ml Balance 787 ml 775 ml 400 ml medications Current Medications Medications Dose Ordered Sig/Angel Route Start Time Stop Time Status Last Admin Dose Admin Ondansetron HCl 4 mg Q4HPRN PRN IV 02/15/25 23:15 Pantoprazole Sodium 40 mg DAILY IV 02/16/25 10:00 02/19/25 09:10 40 MG Azithromycin 250 ml @ 125 mls/hr DAILY IV 02/18/25 10:00 02/19/25 09:13 125 MLS/HR Ampicillin Sodium 500 mg/Sodium Chloride 50 ml @ 100 mls/hr Q6HR IV 02/17/25 18:00 02/19/25 12:12 100 MLS/HR Morphine Sulfate 1 mg Q6HP PRN IV 02/17/25 15:00 02/17/25 15:47 1 MG Ergocalciferol 50,000 unit Q7D PO 02/18/25 21:00 02/18/25 21:09 50,000 UNIT Acetaminophen 650 mg Q6HP PRN PO 02/19/25 01:45 Examination General Appearance: Alert, Oriented X3, Cooperative, No acute distress HEENT: Atraumatic, PERRLA, EOMI, Mucous membrane moist/pink Respiratory: Clear to auscultation, Normal air movement Cardiovascular: Regular rate, Normal S1, Normal S2, No murmurs, no chest wall tenderness Abdominal: Mild tender on deep palpation, bowel sounds present Extremities: No clubbing, No cyanosis, No edema, Normal pulses, No tenderness/swelling Skin: No rashes, No breakdown, No significant lesion Neuro: Normal gait, Normal speech, Strength at 5/5 X4 ext, Normal tone, Sensation intact, Cranial nerves 3-12 NL, Reflexes 2+ Psych/Mental Status: Mental status NL, Mood NL l laboratory and microbiology Laboratory Tests 02/18/25 09:19 02/18/25 06:23 Test 02/18/25 06:23 Range/Units Serum Glucose 98 74-106 mg/dL Microbiology Date/Time Source Procedure Growth Status 02/16/25 15:54 Nose MRSA Screen - Final Complete 02/16/25 15:00 Voided Urine Urine Culture - Preliminary Resulted 02/16/25 08:54 Blood Blood Culture - Preliminary NO GROWTH AFTER 72 HOURS OF INCUBATION. Resulted 02/15/25 22:00 Stool Clostridium difficile Toxin Assay - Final Complete Problem List/Assessment/Plan Problem List/Assessment/Plan # Acute gastroenteritis with colitis likely bacterial/vital # Starvation ketosis to recurrent vomiting # Acute gastritis -CT abdomen and pelvis without contrast:small bowel contains fluid from the stomach to the cecum possibility of enteritis is raised. colonic mucosal thickening likely colitis. -Ultrasound kidney : No hydronephrosis - lactic acid 2.0 -beta hydroxybutyric acid 0.593 -UDS positive for fentanyl possibly, administered in-hospital - stool positive for Campylobacter and Salmonella -Shigella and Clostridium difficile is negative -Discontinue Zosyn and continue IV ampicillin and azithromycin -monitor vital -IVF - Pain medications # KATHERINE due to vasomotor nephropathy Metabolic acidosis IV fluids FeNA 0.9% strict input output Avoid nephrotoxic Creatinine creatinine trending down to 3.71 to 1.66>0.82 Nephrology consult appreciated BMP # Complicated UTI UA shows turbid, leukocyte esterase 3+, RBC 10, WBC 70, bacteria many - IV antibiotic AND IV FLUID -Ultrasound kidney : No hydronephrosis - Urine culture negative for any growth # Hyponatremia due to hypovolemia IV fluids BMP #Vitamin-D deficiency Vitamin-D level 20.0 Vitamin-D 77296 units p.o. Q weekly #Hypocalcemia PUD prophylaxis: protonix DVT prophylaxis: Patient ambulatory Goals of care discussions. More than 21 minute spent with patient. Full code status. Case discussed with Dr. CARUSO Plan discussed with: Patient, Spouse, Other (NURSE) My Orders My Orders Orders - MOHINDER FOFANA Procedure Category Date Status Time Complete Blood Count LAB 02/20/25 Verified 04:00 Basic Metabolic Panel LAB 02/20/25 Verified 04:00 Basic Metabolic Panel LAB 02/19/25 Logged 14:58 Complete Blood Count LAB 02/19/25 Logged 14:58 Dietary Evaluation Review Comments: Nutrition Recommendation: 1) Advance diet as medically feasible 2) Refer Farm Product Purchaser for weight management Expected Outcomes/Goals: To meet >75% estimated needs Fu 2-3 days Date of Service: Feb 19, 2025 Billing Provider: CHRIS CAURSO MD Common Visit Codes: [id number] INP/OBS CARE(HIGH) MOHINDER FOFANA Feb 19, 2025 15:05 CHRIS CARUSO MD Feb 19, 2025 23:04
[2025-02-19 15:25] LABS: Hemoglobin 14.2 g/dL (12.2-16.2); Nucleated Red Blood Cells % 0.0 %
[2025-02-19 15:26] LABS: Hematocrit 41.8 % (36.0-46.0); Mean Corpuscular Hemoglobin 26.8 pg (28.0-32.0); Mean Corpuscular Volume 79.0 fL (80.0-100.0)
[2025-02-19 15:38] LABS: Chloride 103 mmol/L (98-107); Sodium 138 mmol/L (136-145)
[2025-02-19 15:39] LABS: Anion Gap 10 (5-15); Carbon Dioxide 25 mmol/L (20-31)
[2025-02-19 15:44] LABS: BUN/Creatinine Ratio 8.6 (10.0-20.0)
[2025-02-19 15:52] LABS: Blood Urea Nitrogen 6 mg/dL (9-23); Calcium 8.2 mg/dL (8.7-10.4); Glucose 136 mg/dL (74-106); Potassium 3.4 mmol/L (3.5-5.1)
[2025-02-19] MEDS: POTASSIUM CHL 20 Meq TABLET PO ONE (19:50)
[2025-02-20] VITALS (8 sets, daily range): BP systolic 102–118; BP diastolic 68–81; PULSE 62–83; RESP 16–19; TEMP 97.5–98.8; O2SAT 94–96
[2025-02-20 07:37] LABS: Hematocrit 41.8 % (36.0-46.0); Hemoglobin 14.3 g/dL (12.2-16.2); Mean Corpuscular Hemoglobin 27.1 pg (28.0-32.0); Mean Corpuscular Volume 79.0 fL (80.0-100.0)
[2025-02-20 07:52] LABS: Chloride 103 mmol/L (98-107); Potassium 3.7 mmol/L (3.5-5.1); Sodium 138 mmol/L (136-145)
[2025-02-20 07:53] LABS: Anion Gap 11 (5-15); Carbon Dioxide 24 mmol/L (20-31)
[2025-02-20 07:58] LABS: Glucose 94 mg/dL (74-106)
[2025-02-20 08:06] LABS: BUN/Creatinine Ratio 6.7 (10.0-20.0); Blood Urea Nitrogen < 5 mg/dL (9-23); Calcium 8.6 mg/dL (8.7-10.4)
[2025-02-20 08:08] LABS: Total Cells Counted 100.0 (100)
[2025-02-20] MEDS ORDERED: ERGOCALCIFEROL 50,000 UNIT(1.25MG) CAP PO SCH (08:30)
--- NOTE | 2025-02-20 14:09 | DVHPNRES ---
Progress Note Date Seen: Feb 20, 2025 Resident Creating Document: TANI RED RESIDENT Medical Necessity Reason Pt with a Central, PICC or Fol: No Subjective Review of Systems This is a 54-year-old female with no known past medical history who presented with acute complaints of nausea, vomiting, abdominal pain, and back pain that began 3 days prior admission. Abdominal pain which is located in the epigastric region, colicky, intermittent, nonradiating, and 10/10 intensity. The pain worsens with eating and drinking and has no alleviating factors. Patient also complained of diarrhea for 3 days average more than 20 bowel movement per day. Associated symptoms include chills, malaise, weakness and dizziness. She reports that the vomiting is non bloody. The patient and her consumed cactus prior to the onset of symptoms, and both are currently experiencing similar illness. Past Medical History (PMH): Denies any past medical history Past Surgical History (PSH): Denies any past surgeries Family history (FH): No relevant family history EtOH: Denies alcohol use Smoking /Vaping: Denies smoking Recreational Drugs: Denies recreational drug use Residence: Lives with Home Medications: None Allergies: No known allergies PCP: Not selected Patient was seen today at bedside. Labs and chart reviewed. Patient reported abdominal cramping has improved but still having some diarrhea but way less frequent than before. Change diet to full diet. Patient's saline for salmonella infection. Objective vital signs Vital Sign Date Time Temp Pulse Resp B/P (MAP) Pulse Ox O2 Delivery O2 Flow Rate FiO2 02/20/25 12:56 98.3 71 16 112/77 (89) 95 98.3 02/20/25 08:00 Room Air* 0 21 Total Intake and Output 02/19/25 02/19/25 02/20/25 15:00 23:00 07:00 Intake Total 300 ml 345 ml 1200 ml Output Total 600 ml Balance 300 ml -255 ml 1200 ml medications Current Medications Medications Dose Ordered Sig/Angel Route Start Time Stop Time Status Last Admin Dose Admin Ondansetron HCl 4 mg Q4HPRN PRN IV 02/15/25 23:15 Pantoprazole Sodium 40 mg DAILY IV 02/16/25 10:00 02/20/25 09:57 40 MG Azithromycin 250 ml @ 125 mls/hr DAILY IV 02/18/25 10:00 Hold 02/19/25 09:13 125 MLS/HR Ampicillin Sodium 500 mg/Sodium Chloride 50 ml @ 100 mls/hr Q6HR IV 02/17/25 18:00 02/20/25 09:58 100 MLS/HR Morphine Sulfate 1 mg Q6HP PRN IV 02/17/25 15:00 02/17/25 15:47 1 MG Ergocalciferol 50,000 unit Q7D PO 02/18/25 21:00 02/18/25 21:09 50,000 UNIT Acetaminophen 650 mg Q6HP PRN PO 02/19/25 01:45 Ergocalciferol 50,000 unit Q7D PO 02/20/25 08:30 Cancel Examination General Appearance: Alert, Oriented X3, Cooperative, No acute distress HEENT: Atraumatic, PERRLA, EOMI, Mucous membrane moist/pink Respiratory: Clear to auscultation, Normal air movement Cardiovascular: Regular rate, Normal S1, Normal S2, No murmurs, no chest wall tenderness Abdominal: Mild tender on deep palpation, bowel sounds present Extremities: No clubbing, No cyanosis, No edema, Normal pulses, No tenderness/swelling Skin: No rashes, No breakdown, No significant lesion Neuro: Normal gait, Normal speech, Strength at 5/5 X4 ext, Normal tone, Sensation intact, Cranial nerves 3-12 NL, Reflexes 2+ Psych/Mental Status: Mental status NL, Mood NL laboratory and microbiology Laboratory Tests 02/20/25 06:50 Test 02/20/25 06:50 Range/Units Serum Glucose 94 74-106 mg/dL Microbiology Date/Time Source Procedure Growth Status 02/16/25 15:54 Nose MRSA Screen - Final Complete 02/16/25 15:00 Voided Urine Urine Culture - Final Complete 02/16/25 08:54 Blood Blood Culture - Preliminary NO GROWTH AFTER 72 HOURS OF INCUBATION. Resulted 02/15/25 22:00 Stool Clostridium difficile Toxin Assay - Final Complete Problem List/Assessment/Plan Problem List/Assessment/Plan Problem List/Assessment/Plan # Acute gastroenteritis with colitis due to salmonella infection # Starvation ketosis to recurrent vomiting # Acute gastritis -CT abdomen and pelvis without contrast:small bowel contains fluid from the stomach to the cecum possibility of enteritis is raised. colonic mucosal thickening likely colitis. -Ultrasound kidney : No hydronephrosis - lactic acid 2.0 -beta hydroxybutyric acid 0.593 -UDS positive for fentanyl possibly, administered in-hospital - stool positive for Campylobacter and Salmonella -Shigella and Clostridium difficile is negative -discontinue azithromycin -continue ampicillin as prescribed -monitor vital - Pain medications # KATHERINE due to vasomotor nephropathy Metabolic acidosis FeNA 0.9% strict input output Avoid nephrotoxic Creatinine creatinine trending down Nephrology consult appreciated BMP # Complicated UTI UA shows turbid, leukocyte esterase 3+, RBC 10, WBC 70, bacteria many -continue current antibiotic -Ultrasound kidney : No hydronephrosis - Urine culture negative for any growth # Hyponatremia due to hypovolemia BMP -maintain oral hydration #Vitamin-D deficiency Vitamin-D level 20.0 Vitamin-D 19443 units p.o. Q weekly #Hypocalcemia PUD prophylaxis: protonix DVT prophylaxis: Patient ambulatory Goals of care discussions. More than 30 minute spent with patient. Full code status. Case discussed with Dr. Hughes Plan discussed with: Patient, Spouse, Other (NURSE) Plan discussed with: Patient, Other My Orders My Orders Orders - TANI RED Procedure Category Date Status Time Regular Diet DIET 02/20/25 Transmitted Lunch Dietary Evaluation Review Comments: Nutrition Recommendation: 1) Advance diet as medically feasible 2) Refer [employer] Worker for weight management Expected Outcomes/Goals: To meet >75% estimated needs Fu 2-3 days Date of Service: Feb 20, 2025 Billing Provider: SASCHA HUGHES MD Common Visit Codes: [id number] INP/OBS CARE(HIGH) TANI RED Feb 20, 2025 14:09 SASCHA HUGHES MD Feb 23, 2025 13:43
[2025-02-21] VITALS (8 sets, daily range): BP systolic 102–126; BP diastolic 60–98; PULSE 69–84; RESP 15–20; TEMP 98.1–98.6; O2SAT 92–97
[2025-02-21 07:24] LABS: Hematocrit 42.3 % (36.0-46.0); Hemoglobin 14.3 g/dL (12.2-16.2); Mean Corpuscular Hemoglobin 26.9 pg (28.0-32.0); Mean Corpuscular Volume 79.5 fL (80.0-100.0); Nucleated Red Blood Cells % 0.0 %
[2025-02-21 07:36] LABS: Alanine Aminotransferase 18 U/L (7-40); Albumin 3.6 g/dL (3.2-4.8); Alkaline Phosphatase 63 U/L (46-116); Anion Gap 10 (5-15); BUN/Creatinine Ratio 6.8 (10.0-20.0); Blood Urea Nitrogen < 5 mg/dL (9-23); Calcium 8.4 mg/dL (8.7-10.4); Carbon Dioxide 23 mmol/L (20-31); Chloride 105 mmol/L (98-107); Glucose 96 mg/dL (74-106); Magnesium 1.8 mg/dL (1.6-2.6); Potassium 3.6 mmol/L (3.5-5.1); Sodium 138 mmol/L (136-145); Total Protein 6.3 g/dL (5.7-8.2)
[2025-02-21 07:37] LABS: Bilirubin, Total 0.4 mg/dL (0.2-1.0)
[2025-02-21] MEDS: ACETAMINOPHEN 325 MG TAB PO PRN (15:39)
--- NOTE | 2025-02-21 19:13 | DVHPNRES ---
Progress Note Date Seen: Feb 21, 2025 Resident Creating Document: TANI RED RESIDENT Medical Necessity Reason Pt with a Central, PICC or Fol: No Subjective Review of Systems This is a 54-year-old female with no known past medical history who presented with acute complaints of nausea, vomiting, abdominal pain, and back pain that began 3 days prior admission. Abdominal pain which is located in the epigastric region, colicky, intermittent, nonradiating, and 10/10 intensity. The pain worsens with eating and drinking and has no alleviating factors. Patient also complained of diarrhea for 3 days average more than 20 bowel movement per day. Associated symptoms include chills, malaise, weakness and dizziness. She reports that the vomiting is non bloody. The patient and her consumed cactus prior to the onset of symptoms, and both are currently experiencing similar illness. Past Medical History (PMH): Denies any past medical history Past Surgical History (PSH): Denies any past surgeries Family history (FH): No relevant family history EtOH: Denies alcohol use Smoking /Vaping: Denies smoking Recreational Drugs: Denies recreational drug use Residence: Lives with Home Medications: None Allergies: No known allergies PCP: Not selected Patient was seen today at bedside. Labs and chart reviewed. Patient reported ongoing diarrhea, 7-8 times overnight, almost 10 times throughout the day. On ampicillin. Objective vital signs Vital Sign Date Time Temp Pulse Resp B/P (MAP) Pulse Ox O2 Delivery O2 Flow Rate FiO2 02/21/25 16:56 98.1 70 16 102/63 (76) 94 98.1 02/21/25 08:00 Room Air* 0 21 Total Intake and Output 02/20/25 02/20/25 02/21/25 15:00 23:00 07:00 Intake Total 625 ml 800 ml Output Total 300 ml Balance 325 ml 800 ml medications Current Medications Medications Dose Ordered Sig/Angel Route Start Time Stop Time Status Last Admin Dose Admin Ondansetron HCl 4 mg Q4HPRN PRN IV 02/15/25 23:15 Pantoprazole Sodium 40 mg DAILY IV 02/16/25 10:00 02/21/25 09:17 40 MG Ampicillin Sodium 500 mg/Sodium Chloride 50 ml @ 100 mls/hr Q6HR IV 02/17/25 18:00 02/21/25 17:32 100 MLS/HR Morphine Sulfate 1 mg Q6HP PRN IV 02/17/25 15:00 02/17/25 15:47 1 MG Ergocalciferol 50,000 unit Q7D PO 02/18/25 21:00 02/18/25 21:09 50,000 UNIT Acetaminophen 650 mg Q6HP PRN PO 02/19/25 01:45 02/21/25 15:39 650 MG Ergocalciferol 50,000 unit Q7D PO 02/20/25 08:30 Cancel Examination General Appearance: Alert, Oriented X3, Cooperative, No acute distress HEENT: Atraumatic, PERRLA, EOMI, Mucous membrane moist/pink Respiratory: Clear to auscultation, Normal air movement Cardiovascular: Regular rate, Normal S1, Normal S2, No murmurs, no chest wall tenderness Abdominal: Mild tender on deep palpation, bowel sounds present Extremities: No clubbing, No cyanosis, No edema, Normal pulses, No tenderness/swelling Skin: No rashes, No breakdown, No significant lesion Neuro: Normal gait, Normal speech, Strength at 5/5 X4 ext, Normal tone, Sensation intact, Cranial nerves 3-12 NL, Reflexes 2+ Psych/Mental Status: Mental status NL, Mood NL laboratory and microbiology Laboratory Tests 02/21/25 06:23 Test 02/21/25 06:23 Range/Units Serum Glucose 96 74-106 mg/dL Microbiology Date/Time Source Procedure Growth Status 02/16/25 15:54 Nose MRSA Screen - Final Complete 02/16/25 15:00 Voided Urine Urine Culture - Final Complete 02/16/25 08:54 Blood Blood Culture - Final NO GROWTH AFTER 5 DAYS OF INCUBATION. Complete 02/15/25 22:00 Stool Clostridium difficile Toxin Assay - Final Complete Problem List/Assessment/Plan Problem List/Assessment/Plan Problem List/Assessment/Plan # Acute gastroenteritis with colitis due to salmonella infection # Starvation ketosis to recurrent vomiting # Acute gastritis -CT abdomen and pelvis without contrast:small bowel contains fluid from the stomach to the cecum possibility of enteritis is raised. colonic mucosal thickening likely colitis. -Ultrasound kidney : No hydronephrosis - lactic acid 2.0 -beta hydroxybutyric acid 0.593 -UDS positive for fentanyl possibly, administered in-hospital - stool positive for Campylobacter and Salmonella -Shigella and Clostridium difficile is negative -discontinue azithromycin -continue ampicillin as prescribed -monitor vital - Pain medications # KATHERINE due to vasomotor nephropathy Metabolic acidosis FeNA 0.9% strict input output Avoid nephrotoxic Creatinine creatinine trending down Nephrology consult appreciated BMP # Complicated UTI UA shows turbid, leukocyte esterase 3+, RBC 10, WBC 70, bacteria many -continue current antibiotic -Ultrasound kidney : No hydronephrosis - Urine culture negative for any growth # Hyponatremia due to hypovolemia BMP -maintain oral hydration #Vitamin-D deficiency Vitamin-D level 20.0 Vitamin-D 85660 units p.o. Q weekly #Hypocalcemia PUD prophylaxis: protonix DVT prophylaxis: Patient ambulatory Goals of care discussions. More than 30 minute spent with patient. Full code status. Case discussed with Dr. Strong Plan discussed with: Patient, Spouse, Other (NURSE) Plan discussed with: Patient, Other (RN) My Orders My Orders Orders - TANI RED Procedure Category Date Status Time Complete Blood Count LAB 02/22/25 Verified 04:00 Comprehensive LAB 02/22/25 Verified Metabolic Panel 04:00 Magnesium LAB 02/22/25 Verified 04:00 Dietary Evaluation Review Comments: Nutrition Recommendation: 1) Advance diet as medically feasible 2) Refer Production Sorter for weight management Expected Outcomes/Goals: To meet >75% estimated needs Fu 2-3 days TANI RED RESIDENT Feb 21, 2025 19:13
[2025-02-21] MEDS: SODIUM CHLORIDE 0.9% 1,000 ML IV ONE (20:30)
[2025-02-22 01:00] VITALS: BP 101/59; PULSE 66; RESP 20; TEMP 98.3; O2SAT 95
[2025-02-22 05:00] VITALS: BP 113/72; PULSE 80; RESP 20; TEMP 98.4; O2SAT 99
[2025-02-22 06:07] LABS: Hematocrit 42.2 % (36.0-46.0); Hemoglobin 14.6 g/dL (12.2-16.2); Mean Corpuscular Hemoglobin 27.2 pg (28.0-32.0); Mean Corpuscular Volume 78.9 fL (80.0-100.0); Nucleated Red Blood Cells % 0.0 %
[2025-02-22 06:20] LABS: Alanine Aminotransferase 21 U/L (7-40); Albumin 3.7 g/dL (3.2-4.8); Alkaline Phosphatase 72 U/L (46-116); Anion Gap 10 (5-15); BUN/Creatinine Ratio 7.9 (10.0-20.0); Bilirubin, Total 0.4 mg/dL (0.2-1.0); Carbon Dioxide 24 mmol/L (20-31); Chloride 106 mmol/L (98-107); Glucose 95 mg/dL (74-106); Magnesium 1.7 mg/dL (1.6-2.6); Potassium 3.8 mmol/L (3.5-5.1); Sodium 140 mmol/L (136-145); Total Protein 6.6 g/dL (5.7-8.2)
[2025-02-22 06:23] LABS: Blood Urea Nitrogen 7 mg/dL (9-23); Calcium 8.7 mg/dL (8.7-10.4)
--- NOTE | 2025-02-22 07:09 | DVHDSRES ---
Discharge Summary Date of Admission Resident Creating Document: TANI RED RESIDENT Feb 15, 2025 at 23:13 Date of Discharge: Feb 22, 2025 Admitting Diagnosis Acute gastroenteritis, KATHERINE Labs/Diagnostic Data: Laboratory Results Test 02/22/25 05:42 02/20/25 06:50 02/18/25 04:15 02/16/25 15:00 White Blood Count 9.1 10^3/uL (4.4-10.8) Red Blood Count 5.35 10^6/uL (4.0-5.20) Hemoglobin 14.6 g/dL (12.2-16.2) Hematocrit 42.2 % (36.0-46.0) Mean Corpuscular Volume 78.9 fL (80.0-100.0) Mean Corpuscular Hemoglobin 27.2 pg (28.0-32.0) Mean Corpuscular Hemoglobin Concent 34.5 g/dL (32.0-36.0) Red Cell Distribution Width 14.0 % (11.8-14.3) Platelet Count 302 10^3/uL (140-450) Mean Platelet Volume 8.6 fL (6.9-10.8) Neutrophils (%) (Auto) 67.4 % (37.0-80.0) Lymphocytes (%) (Auto) 25.2 % (10.0-50.0) Monocytes (%) (Auto) 5.8 % (0.0-12.0) Eosinophils (%) (Auto) 1.3 % (0.0-7.0) Basophils (%) (Auto) 0.3 % (0.0-2.0) Neutrophils # (Auto) 6.1 10 ^3/uL (1.6-8.6) Lymphocytes # (Auto) 2.3 10 ^3/uL (0.4-5.4) Monocytes # (Auto) 0.5 10 ^3/uL (0-1.3) Eosinophils # (Auto) 0.1 10 ^3/uL (0-0.8) Basophils # (Auto) 0 10 ^3/uL (0-0.2) Nucleated Red Blood Cells 0.0 % Sodium Level 140 mmol/L (136-145) Potassium Level 3.8 mmol/L (3.5-5.1) Chloride Level 106 mmol/L (98-107) Carbon Dioxide Level 24 mmol/L (20-31) Anion Gap 10 (5-15) Blood Urea Nitrogen 7 mg/dL (9-23) Creatinine 0.89 mg/dL (0.550-1.02) Glomerular Filtration Rate Calc 77 mL/min (>90) BUN/Creatinine Ratio 7.9 (10.0-20.0) Serum Glucose 95 mg/dL (74-106) Calcium Level 8.7 mg/dL (8.7-10.4) Magnesium Level 1.7 mg/dL (1.6-2.6) Total Bilirubin 0.4 mg/dL (0.2-1.0) Aspartate Amino Transferase (AST) 23 U/L (13-40) Alanine Aminotransferase (ALT) 21 U/L (7-40) Alkaline Phosphatase 72 U/L (46-116) Total Protein 6.6 g/dL (5.7-8.2) Albumin 3.7 g/dL (3.2-4.8) Differential Total Cells Counted 100.0 (100) Neutrophils % (Manual) 48 (37.0-80.0) Band Neutrophils % (Manual) 5 Lymphocytes % (Manual) 34 (10.0-50.0) Monocytes % (Manual) 12 (0-12) Eosinophils % (Manual) 1 (0-7) Basophils % (Manual) 0 (0.0-2.0) Metamyelocytes % (manual) 0 Myelocytes % (Manual) 0 Promyelocytes % (Manual) 0 Blast Cells % (Manual) 0 Reactive Lymphocytes 0 Platelet Estimate Adequate Microcytosis Slight Influenza Type A Antigen Negative (Negative) Influenza Type B Antigen Negative (Negative) Urine Color Light-yellow (Yellow) Urine Clarity Turbid (Clear) Urine pH 5.5 (5.0-9.0) Urine Specific [place] 1.011 (1.001-1.035) Urine Protein 1+ (Negative) Urine Ketones Negative (Negative) Urine Blood Trace /uL (Negative) Urine Nitrite Negative (Negative) Urine Bilirubin Negative (Negative) Urine Urobilinogen Normal mg/dL (Negative) Urine Leukocyte Esterase Negative /uL (Negative) Urine RBC 1 /hpf (0 - 4) Urine Microscopic WBC 10 /HPF (0-5) Urine Squamous Epithelial Cells Few /hpf (<5) Urine Bacteria Few /hpf (None Seen) Urine Mucus Few (None Seen) Urine Creatinine 77.21 mg/dL (30.0-125.0) Urine Protein/Creatinine Ratio 0.88 Urine Sodium 25 mmol/L (40-220) Urine Glucose Normal mg/dL (Normal) Urine Total Protein 69.4 mg/dL (1-14) Urine Opiates Screen Neg (NEGATIVE) Urine Fentanyl Screen Pos (NEGATIVE) Urine Barbiturates Screen Neg (NEGATIVE) Urine Phencyclidine Screen Neg (NEGATIVE) Urine Amphetamines Screen Neg (NEGATIVE) Urine Benzodiazepines Screen Neg (NEGATIVE) Urine Cocaine Screen Neg (NEGATIVE) Urine Cannabinoids Screen Neg (NEGATIVE) Test 02/16/25 08:54 02/16/25 04:57 02/16/25 02:32 02/15/25 19:01 Prothrombin Time 11.4 sec (9.3-11.8) Prothrombin Time INR 1.08 (0.9-1.15) Activated Partial Thromboplast Time 31.0 SEC (24.5-34.5) Vitamin B12 Level 511 pg/mL (211-911) Vitamin D 25-Hydroxy 20.0 ng/mL (30.0-100) Large Platelets Few Giant Platelets Few Hemoglobin A1c 5.6 % A1C (<5.7) Thyroid Stimulating Hormone (TSH) 0.88 uIU/mL (0.55-4.78) SARS-CoV-2 Antigen (Rapid) Negative (NEGATIVE) Lactic Acid Level 2.0 mmol/L (0.4-2.0) Lipase 30 U/L (12-53) Beta-Hydroxybutyric Acid 0.593 mmol/L (< 0.4) Test 02/15/25 18:18 Urine WBC Clumps Present /hpf (None Seen) Stool for White Cells Few Other Laboratory Tests 02/22/25 05:42 Brief Hx & Hospital Course: This is a 54-year-old female with no known past medical history who presented with acute complaints of nausea, vomiting, abdominal pain, and back pain that began 3 days prior admission. Abdominal pain which is located in the epigastric region, colicky, intermittent, nonradiating, and 10/10 intensity. The pain worsens with eating and drinking and has no alleviating factors. Patient also complained of diarrhea for 3 days average more than 20 bowel movement per day. Associated symptoms include chills, malaise, weakness and dizziness. She reports that the vomiting is non bloody. Patient and his family ate seafood and got same kind of symptoms. Patient's stool culture was positive for Salmonella. Patient's hospital course was complicated by KATHERINE. Patient was treated with IV fluid and ampicillin IV. Patient's symptoms improved. Patient is being discharged home with the ampicillin 500 mg p.o. q.6h for 5 days. Patient's meds were sent to the pharmacy electronically. Patient was advised to follow up with the primary care physician in 1-2 weeks. Patient was hemodynamically stable on discharge Operations or Procedures [place] [id number] Ph: [phone] DIAGNOSTIC IMAGING Diagnostic Imaging Report : [id number] Signed PATIENT: CLIVE FELICIANO ACCT: [id number] UNIT: [id number] : 1970 LOC: ER ROOM / BED: / AGE / SEX: 54 / F ADM STATUS: REG ER SERVICE 183 ORDERING PHYSICIAN: JOSELYN MORAN DO PROCEDURE(s): ABPL - CT AB PEL WO CON-NO ORAL OR IV REASON: abd pain n/v/d ORDER NUMBER(s): [id number], ACCESSION NUMBER(s): [id number] Exam: CT CT AB PEL WO CON-NO ORAL OR IV History: abd pain n/v/d Comparison Study: None TECHNIQUE: Multidetector CT of the abdomen was performed from lung bases to pubic symphysis. Imaging was performed without IV contrast. Axial, coronal and sagittal multiplanar reformats were obtained from the axial data set by the technologist. Radiation Dose Information: CT Dose: CTDI volume is 22.75 mGy. Dose-length product is 1252.25 mGy*cm FINDINGS: Evaluation of solid organs is limited due to lack of intravenous contrast use. Findings: Lung Bases: No acute or significant lung base finding. Normal heart size. No pleural or pericardial effusion. Liver: The liver is normal in size. No focal lesions. Gallbladder and Biliary Tree: Unremarkable Spleen: Unremarkable Pancreas: The pancreas is grossly normal in appearance. Adrenal Glands: Unremarkable Kidneys: Kidneys are grossly normal without calculi or hydronephrosis. Bladder: Grossly unremarkable for degree of distention. Bowel: The stomach is grossly normal in appearance. Small bowel and colon are normal in caliber and distribution. The appendix is visualized and appears normal. Ascites: Absent Lymphadenopathy: No mesenteric, retroperitoneal or periportal lymphadenopathy. Abdominal Wall and Mesentery: Unremarkable. Vasculature: The visualized abdominal aorta is normal in size and caliber. Evaluation of abdominal and pelvic vessels is limited due to lack of intravenous contrast. Pelvic Organs: Unremarkable Musculoskeletal: No aggressive focal bony lesions, acute fractures or dislocation. Soft tissues: Unremarkable IMPRESSION: 1. Right: Mucosal thickening correlate clinically for possible colitis. 2. No abnormally dilated small bowel however small bowel contains fluid from the stomach to the cecum possibility of enteritis is raised. 3. Appendix is visualized and appears normal 4. No free air or free fluid. 5. No nephrolithiasis or hydronephrosis 6. Pancreas appears normal. Radiation optimization: All CT scans at this facility use at least one of these dose optimization techniques: automated exposure control mA and/or kV adjustment per patient size (includes targeted exams where dose is matched to clinical indication) or iterative reconstruction. ATED BY: SHEILA CHEATHAM Jr., DO DICTATED DATE/TIME: 02/15/251903 SIGNED BY: SHEILA CHEATHAM Jr., SIGNED DATE/TIME: 02/15/251903 CC: [place] [id number] Ph: [phone] DIAGNOSTIC IMAGING Diagnostic Imaging Report : [id number] Signed PATIENT: CLIVE FELICIANOCCT: [id number] UNIT: [id number] : 1970 LOC: OVERFLOW ROOM / BED: [address] [place] [address] AGE / SEX: 54 / F ADM STATUS: ADM IN SERVICE [id number] ORDERING PHYSICIAN: RICARDO EDWARDS RESIDENT PROCEDURE(s): KIDUS - KIDNEY REASON: katherine ORDER NUMBER(s): [id number], ACCESSION NUMBER(s): [id number] INDICATION: katherine TECHNIQUE: Multiple real-time sonographic images of the kidneys and bladder were obtained. COMPARISON: None FINDINGS: The right kidney measures 10 cm in length, which is normal in size. There is normal echogenicity of the right kidney. No hydronephrosis. The left kidney measures 11 cm in length, which is normal in size. There is normal echogenicity of the left kidney. No hydronephrosis. No large intraluminal masses are seen in the bladder. IMPRESSION: 1. Normal sonographic appearance of the kidneys. No hydronephrosis. ATED BY: MARLON HAIR MD DICTATED DATE/TIME: 02/16/25816 SIGNED BY: MARLON HAIR MD SIGNED DATE/TIME: 02/16/25816 CC: Condition at Discharge: Stable Final Diagnosis/Problems List # Acute gastroenteritis with colitis due to salmonella infection # Starvation ketosis to recurrent vomiting # Acute gastritis # KATHERINE due to vasomotor nephropathy #Metabolic acidosis # Complicated UTI # Hyponatremia due to hypovolemia #Vitamin-D deficiency #Hypocalcemia Discharge Disposition: Home Discharge Instruct/Medications Diet: Regular Follow Up/Referral: Please follow up with the discharge clinic Please follow up with the primary care physician in 1-2 weeks Medications: Ampicillin 500 mg q.6h for 5 days. Famotidine 20 mg p.o. daily Florastor Scheduled Ampicillin (Ampicillin), 1 CAP PO QID Famotidine (Famotidine), 20 MG PO DAILY Discharge Statement: "Patient was advised to return to the ER or call 911 if any headaches, dizziness, shortness of breath, chest pain, abdominal pain, bleeding, fevers, or worsening of medical condition. Patient was counseled about treatment plan, medications, possible side effects, patientverbalized understanding. All questions were answered to the best of my ability. This discharge took greater then 30 minutes in planning, reviewing documentation, counseling the patient, and discussing with other team members." ASSESSMENT ASSESSMENT Assessment TANI RED RESIDENT Feb 22, 2025 07:09
[2025-02-22 08:00] VITALS: PULSE 76; RESP 20; O2SAT 93
[2025-02-22] MEDS ORDERED: AMPI500C9 PO (08:15)
[2025-02-22] MEDS ORDERED: FAMO-12 PO (08:15)
[2025-02-22 09:00] VITALS: BP 109/70; PULSE 70; RESP 18; TEMP 98; O2SAT 95
[2025-02-22 09:27] VITALS: BP 109/70; PULSE 70; RESP 16; TEMP 98; O2SAT 98
[2025-02-22 13:00] VITALS: BP 123/89; PULSE 73; RESP 17; TEMP 98; O2SAT 96
== END 2025-02-22 13:21 | disposition home or self-care (01) | DRG 248 ==
LOC: ER 18:03 → OVERFLOW 23:13 → TELE-EAST 02-16 16:50 → EAST 02-22 06:58
PROVIDERS: ADMIT Student in an Organized Health Care Education/Training Program; ATTEND Student in an Organized Health Care Education/Training Program
DX: A02.0 Salmonella enteritis (principal); N17.0 Acute kidney failure with tubular necrosis; E87.20 Acidosis, unspecified; Z20.822 Contact with and (suspected) exposure to COVID-19; K29.00 Acute gastritis without bleeding; E83.51 Hypocalcemia; E87.1 Hypo-osmolality and hyponatremia; E86.0 Dehydration; N39.0 Urinary tract infection, site not specified; T73.0XXA Starvation, initial encounter; E86.1 Hypovolemia; X58.XXXA Exposure to other specified factors, initial encounter
CPT/HCPCS: 36415; 74176; 76775; 80048; 80053; 80307; 81001; 82010; 82306; 82570; 82607; 83036; 83605; 83690; 83735; 84156; 84300; 84443; 85007; 85025; 85027; 85048; 85610; 85730; 87040; 87045; 87081; 87086; 87177; 87426; 87427; 87493; 87804; 96361; 96374; 99291; G0378; J1885; J1956; J2003; J2405; J2470; J2543; J3490